=== PATIENT | female | born 1980 | race African-American/Black ===

== ENCOUNTER 2019-09-11 16:25 | Emergency (ER) | payer OTHER, SELFPAY ==
[2019-09-11 16:36] VITALS: BP 122/77; PULSE 107; RESP 18; TEMP 38.6; O2SAT 97
--- NOTE | 2019-09-11 17:01 | ED.GENADULT ---
HPI - General Adult General Chief complaint: Upper Respiratory Infection Stated complaint: Diarrhea/sore throat/bodyaches/dizziness Time Seen by Provider: 09/11/19 17:01 Source: patient Mode of arrival: ambulatory Limitations: no limitations History of Present Illness HPI narrative: 38-year-old female patient presents to the [facility] with complaints of cold symptoms and sore throat. Patient states that her sore throat started about 3 days ago but started having fevers yesterday. Patient states she has been very achy, chills, fevers, cough, runny nose been feeling very tired and weak. Patient denies getting a flu shot. 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 Patient states she has been taking gxmo-piw-otgvabi TheraFlu and ibuprofen for symptoms. Denies any abdominal pain, nausea, vomiting or diarrhea. Patient states she does have some chest pain and shortness of breath at times when she coughs. Patient denies or breast-feeding at this time. Related Data Allergies Allergy/AdvReac Type Severity Reaction Status Date / Time No Known Allergies Allergy Unverified 09/11/19 16:57 Review of Systems Review of Systems: Narrative: CONSTITUTIONAL: Positive fever, chills, body aches and sweats. Positive lethargy EYES: Denies visual changes, redness, or discharge. ENT: Positive rhinorrhea, congestion, sore throat, denies otalgia. CARDIOVASCULAR: Positive chest pain with cough, denies palpitations, or edema. RESPIRATORY: Positive cough with dyspnea at times. GASTROINTESTINAL: Denies abdominal pain, nausea, vomiting, or diarrhea. GENITOURINARY: Denies dysuria or hematuria. SKIN: Denies rash or itching. MUSCULOSKELETAL: Denies back pain, joint pain, or myalgia. NEUROLOGIC: Positive headache, denies numbness, or weakness. PSYCHIATRIC: Denies anxiety or depression. [facility] Past Medical History Medical History (Updated 09/11/19 @ 17:56 by NORMA Guthrie) Cholecystitis, acute Kidney stones Social History Social History Gender identity (if verbalized by the patient): Female Comments At the time of my signature I agree with nursing past medical history, surgical, social, and family history. There is no relevant family history pertinent to the presenting complaint. Exam Narrative: Exam Narrative: GENERAL: ill-appearing, well-nourished, and in no acute distress. HEAD: Normocephalic, atraumatic. EYES: PERRLA and EOMI. ENT: Nares with erythema and edema noted bilaterally, no rhinorrhea or epistaxis. Mucous membranes moist. Posterior pharynx with no erythema, tonsillar margin, exudates or lesions present. Bilateral TMs are clear with no erythema or foreign bodies in the canal. NECK: Supple. No lymphadenopathy CHEST: Clear to auscultation. No respiratory distress. Patient able talk clear complete sentences. No tripoding noted. HEART: Regular rate and rhythm. No murmur heard. Normal peripheral pulses. ABDOMEN: Soft, nontender, nondistended, normal active bowel sounds. EXTREMITIES: Normal range of motion. No edema. SKIN: Warm, dry, no rash. NEURO: No focal deficits. Alert and oriented x3. Course Reevaluation(s) Reevaluation #1: Discussed with patient that her influenza and her strep are both negative today. But based on her symptoms I am still not convinced that she could possibly still have influenza and the fact that she works in a senior care I am to take her off work for the next 3 days and see how her symptoms do. Discussed with patient that she should be taking hwnkp-sop-flivr Tylenol and ibuprofen for body aches, chills and fevers. I will go ahead and send her home with an cough syrup to help with the coughing symptoms. Discussed with patient that if she has worsening symptoms such as fevers that do not come down with Tylenol ibuprofen, worsening chest pain, shortness of breath that she would need to go the ER for furth
== END 2019-09-11 18:00 | disposition home or self-care (01) ==
PROVIDERS: Emergency Provider Nurse Practitioner Family
DX: J06.9 Acute upper respiratory infection, unspecified (principal); R05 Cough
CPT/HCPCS: 87081; 87804; 87880; 99203; G0463

== ENCOUNTER 2020-05-17 18:12 | Emergency (ER) | payer OTHER, SELFPAY ==
[2020-05-17 18:25] VITALS: BP 114/73; PULSE 93; RESP 16; TEMP 38.4; O2SAT 99
--- NOTE | 2020-05-17 18:32 | ED.GENADULT ---
HPI - General Adult General Chief complaint: Upper Respiratory Infection Stated complaint: Dizzy,Fatigue,Body aches Time Seen by Provider: 05/17/20 18:33 Source: patient and RN notes reviewed Mode of arrival: ambulatory Limitations: no limitations History of Present Illness HPI narrative: 39-year-old -[place] female presents with complaints of sore throat for 1 day. Werner says symptoms increased over the past 24 hours with upper respiratory infection symptoms, sinus congestion, body aches, chills, fatigue, cough, and intermittent dizziness. Sinus medication and NyQuil without relief. Dry coughing without chest congestion. Rhinorrhea and nasal congestion. No exacerbating factors. No nausea, vomiting, and abdominal pain. Tolerating po intake well. Denies chest pain, dyspnea, coughing up blood, difficulty swallowing, jaw pain, dental pain, facial pain, foreign body sensation, and rash. Denies loss of consciousness, syncopal episodes, falls, or seizure activity. LMP May 07, 2020. Remains active. Werner says she worked on 04/15/20 for 8 hours with a coworker who tested positive today. Her last test on 05/13/20 was NEGATIVE awaiting her results of today test. The patient reports she does have a new and worsening cough. The patient reports she do not have any loss of taste or diarrhea. Denies recent traveling. Limited outdoor exposure except for essential household needs, work, and return home. At this time, patient is suspected of having COVID-19. Some parts of this dictation were generated by voice recognition software and may contain typographical and/or grammatical inaccuracies. Related Data Allergies Allergy/AdvReac Type Severity Reaction Status Date / Time No Known Allergies Allergy Unverified 09/11/19 16:57 Review of Systems Review of Systems: Narrative: CONSTITUTIONAL: Complains of chills, fatigue. Denies fever, sweats. EYES: Denies visual changes, redness, discharge. ENT: Complains of rhinorrhea, congestion, facial pressure, sore throat. Denies otalgia. CARDIOVASCULAR: Denies chest pain, palpitations, edema. RESPIRATORY: Denies dyspnea, wheezing. Complains of dry cough. GASTROINTESTINAL: Denies abdominal pain, nausea, vomiting, diarrhea. GENITOURINARY: Denies dysuria, hematuria, abnormal discharge SKIN: Denies rash or itching. MUSCULOSKELETAL: Denies acute back pain, joint pain, or myalgia. NEUROLOGIC: Denies numbness or focal weakness. Complains of intermittent dizziness. PSYCHIATRIC: Denies anxiety or depression. All systems reviewed & are unremarkable except as noted in HPI and below. [facility] Past Medical History Medical History (Updated 05/18/20 @ 00:00 by Background Daemon) Cholecystitis, acute History of stent insertion of renal artery and removal for kidney stones Kidney stones Surgical History Surgical History (Updated 05/17/20 @ 19:39 by NORMA Holden) History of lithotripsy Family History Family History (Updated 05/17/20 @ 19:40 by NORMA Holden) Father Hypertension Mother Alive and well Social History Social History (Updated 05/17/20 @ 19:41 by NORMA Holden) Smoking status: Never smoker Tobacco type: cigarettes Second hand tobacco smoke exposure: Yes Alcohol intake: never Substance use: never Living arrangements: with family Occupation/Education: occupation Additional occupation/education comments: [employer] Gender identity (if verbalized by the patient): Female Sexual Orientation (if Verbalized by the Patient): Straight or Heterosexual Comments At time of signature, agree with nurse past medical, surgical, social, and family history. There is no relevant family history pertinent to the presenting complaint. Exam Narrative: Exam Narrative: GENERAL: This is a well-nourished, well-developed patient, in no apparent distress. Speaks in full sentences and ambulates with steady gait without dyspnea. HEAD:
[2020-05-17 19:09] VITALS: TEMP 38.3
[2020-05-17] MEDS: IBUPROFEN 400 MG TABLET 800 MG PO (19:09)
--- NOTE | 2020-05-17 19:10 | PC.NURSE ---
unable to scan medications. attempted x3. 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
[2020-05-17 19:19] VITALS: BP 101/77; BP 107/72; BP 99/62; PULSE 106; PULSE 89; PULSE 95
[2020-05-17 19:38] VITALS: TEMP 37.7
== END 2020-05-17 19:38 | disposition home or self-care (01) ==
PROVIDERS: Emergency Provider Nurse Practitioner Family
DX: B34.9 Viral infection, unspecified (principal)
CPT/HCPCS: 87081; 87804; 87880; 99213; A9270; G0463

== ENCOUNTER 2021-04-05 01:24 | Day surgery (SDC) | payer OTHER, SELFPAY ==
[2021-03-29 08:23] VITALS: BMI 36.3
[2021-04-05] VITALS (8 sets, daily range): BP systolic 98–124; BP diastolic 46–77; PULSE 52–96; RESP 14–20; TEMP 36.3–36.8; O2SAT 95–100
--- NOTE | 2021-04-05 10:20 | WPDHPUPDATE1 ---
History and Physical Update Update Date/Time: 04/05/21 10:20 History and Physical has been reviewed, including an updated exam of the patient. There are NO changes in the patient's condition. Risks, benefits, and alternatives have been discussed and questions answered. Patient agrees to proceed with procedure.
[2021-04-05] MEDS: LACTATED RINGERS 1,000 ML 30 ML IV CONT (10:25)
[2021-04-05] MEDS: KETOROLAC 15 MG/ML VIAL (*BKC) IV PUSH (10:33)
[2021-04-05] MEDS: ACETAMINOPHEN 500 MG TABLET 1000 MG PO (10:33)
--- NOTE | 2021-04-05 10:38 | P.PNAN_ITS ---
Anes - Initial Pre Proc Eval Procedure: Operation Date: 04/05/21 12:30 Proposed Procedures p Hysteroscopy with Ciara Endometrial Ablation, Laparoscopic Bilateral Salpingectomy - Frances Howard MD Date/Time: 04/05/21 10:38 Surgeon: Frances Howard MD Pre Op Diagnosis: menorrhaghia, sterilization Patient Data Age: 40 Gender: F Height: 1.6 m Weight: 91 kg Allergies Allergy/AdvReac Type Severity Reaction Status Date / Time No Known Allergies Allergy Verified 04/05/21 10:20 Home Medications Medication Instructions Recorded Confirmed Type cholecalciferol (vitamin D3) 125 mcg PO DAILY 03/29/21 04/05/21 History [Vitamin D3] bmjovogzljrl-Oj-qlcu-minerals 1 tablet PO DAILY 03/29/21 04/05/21 History [Women's One Daily] valacyclovir [Valtrex] 1,000 mg PO PRN PRN 03/29/21 04/05/21 History Patient hx anesthesia problems: none Family hx anesthesia problems: none Results Review: All pre-operative results and documents have been reviewed as part of the pre-operative evaluation. [facility] Past Medical History Medical History Cholecystitis, acute History of stent insertion of renal artery and removal for kidney stones Kidney stones Surgical History Surgical History History of lithotripsy Family History Family History Father Hypertension Mother Alive and well Social History Social History Smoking status: Never smoker Tobacco type: cigarettes Second hand tobacco smoke exposure: Yes Alcohol intake: never Substance use: never Substance use type: does not use Living arrangements: with family Additional occupation/education comments: [employer] / [employer] Gender identity (if verbalized by the patient): Female Sexual Orientation (if Verbalized by the Patient): Straight or Heterosexual Spiritual care concerns: No Anes - Eval Final PreProcedure Day of Procedure 04/05/21 10:38 Patient weight: obese Heart: regular rate and rhythm Lungs: clear to auscultation Airway: Mallampati scale class II Neurological: alert and oriented Last oral intake: >/= 8 hours ASA classification: II Emergent: no Anesthetic plan: proceed Anesthesia type and monitoring: general ETT and standard monitoring Results Review: All pre-operative results and documents have been reviewed as part of the pre-operative evaluation. Informed Consent: The patient's anesthetic plan and its attendant risks and benefits were discussed with the patient/family/POA. Questions were solicited and answers provided to the satisfaction of the patient/family/POA.
--- NOTE | 2021-04-05 11:59 | P.OP_ITS ---
Procedure Note - Detailed Date of Procedure 04/05/21 Pre-op Diagnosis menorrhaghia, sterilization Post-op Diagnosis same Procedure Performed Laparoscopic bilateral salpingectomy with endometrial ablation and hysteroscopy. Surgeon Frances Howard MD Anesthesia general Indications Menorrhagia, female sterilization Findings Normal vulva, vagina and cervix Description of Procedure Patient was taken the operating room. She has prepped draped in the dorsal lithotomy position after induction of general anesthesia. A 5 mm abdominal incision was made in left upper quadrant of the abdomen with scalpel. A 5 mm trocars inserted the intra-abdominal cavity under direct visualization of the scope. Pneumoperitoneum was achieved. A 5 mm periumbilical incision was made using a scalpel on the abdominal scan. A 5 mm trocar was inserted the intra- abdominal cavity under visualization of the scope. A 5 mm incision made left lower quadrant of the abdomen. A 5 mm trocar was inserted the intra-abdominal cavity and direct visualization of the scope. The bilateral fallopian tubes were removed. The paratubal tissue in the area of the uterus was grasped with the LigaSure cautery and transected after being cauterized. The paratubal tissue from the ovary to the uterine cornu was cauterized and transected with LigaSure cautery. This was all done in a bilateral fashion. The tube was transected at the area of the uterine cornua and the tubes was removed through the 5 mm trocar site. The pneumoperitoneum was reduced. The trocars were removed. The skin was closed with subcuticular 4 Monocryl and covered with Dermabond. Our attention was then turned to the endometrial ablation portion of the procedure. A speculum was placed in the vagina. The cervix was grasped with a tenaculum. The cervix was dilated to approximately 8 mm with Wan dilators. The hysteroscope was inserted. And the below findings were noted. All of the intrauterine surfaces were curettaged with a medium-size curette and the specim ens were collected. Measurements of the cervix were taken using the uterine sound and the hysteroscope. The intrauterine cavity measurements were entered into the handpiece. The device was inserted into the intrauterine cavity and the array was expanded. The balloon cuff was inflated. When an adequate seal was formed the safety and energy cycles were initiated and completed. The array was collapsed, the balloon was deflated. The insert was withdrawn. The hysteroscope was reinserted and a well desiccated intrauterine cavity was observed. The patient was taken recovery room stable condition. Sponge lap and needle counts were correct x2. She tolerated the procedure well. Estimated Blood Loss 20 Pathology yes Complications No immediate complications Condition stable Disposition PACU
== END 2021-04-05 13:38 | disposition home or self-care (01) ==
PROVIDERS: Visit Provider Obstetrics & Gynecology
PROC: 0UDB8ZZ Extraction of Endometrium, Via Natural or Artificial Opening Endoscopic (ICD-10-PCS; CPT 58558; principal; 2021-04-05 12:30)
DX: N92.0 Excessive and frequent menstruation with regular cycle (principal); Z30.2 Encounter for sterilization; E66.9 Obesity, unspecified; Z68.35 Body mass index [BMI] 35.0-35.9, adult
CPT/HCPCS: 58661; 58563; 88302; 88305; A9270; J1100; J1170; J1885; J2250; J2405; J2704; J2710; J7030; J7120

== ENCOUNTER 2022-04-03 08:37 | Outpatient (CLI) | payer OTHER, SELFPAY ==
--- NOTE | ~2022-04-03 | MM_ITS ---
EXAMINATION: MM screening shanika BI w bud HISTORY: Screening mammogram TECHNIQUE: Craniocaudal and mediolateral oblique 3-D tomosynthesis images were obtained and synthetic 2-D images were generated. CAD analysis was submitted and interpreted. COMPARISON: No prior mammogram is available for comparison at this institution. BREAST PARENCHYMAL COMPOSITION: There are scattered areas of fibroglandular density. FINDINGS: There is no evidence of suspicious mass, calcification, or architectural distortion to sugg est malignancy in either breast. There has been no suspicious interval change. IMPRESSION: 1. No mammographic evidence of malignancy. 2. Recommend routine screening mammography in one year. BI-RADS Category 1: Negative Reviewed, dictated and finalized at location A.
== END 2022-04-03 08:38 | disposition home or self-care (01) ==
PROVIDERS: Visit Provider Obstetrics & Gynecology
DX: Z12.31 Encounter for screening mammogram for malignant neoplasm of breast (principal)
CPT/HCPCS: 77063; 77067

== ENCOUNTER 2022-04-20 09:36 | Emergency (ER) | payer OTHER, SELFPAY ==
[2022-04-20 10:05] VITALS: BP 145/86; PULSE 85; RESP 16; TEMP 37.1; O2SAT 99
--- NOTE | 2022-04-20 10:21 | ED.URI ---
HPI - URI/Sore Throat General Chief Complaint: Upper Respiratory Infection Stated Complaint: sore throat, chest and upper back pain Time Seen by Provider: 04/20/22 10:21 Source: patient, RN notes reviewed and old records reviewed Mode of arrival: ambulatory Limitations: no limitations History of Present Illness HPI Narrative: 41-year-old female presents to the [facility] with complaints of sore throat since Saturday, 2 days. Reports when she was leaving work on Saturday they tested her for COVID right when her symptoms started. Cough and muscle pain started yesterday. No treatment prior to arrival Pain is worse with movement. Requesting a work note to go back on Saturday Related Data Home Medications Medication Instructions Recorded Confirmed cholecalciferol (vitamin D3) 125 125 mcg PO DAILY 03/29/21 04/20/22 mcg (5,000 unit) tablet (Vitamin D3) mfkzdwhzpxon-Ss-tlzw-minerals 27 1 tablet PO DAILY 03/29/21 04/20/22 mg-0.4 mg tablet valacyclovir 1 gram tablet 1,000 mg PO PRN PRN Outbreak 03/29/21 04/20/22 (Valtrex) Allergies Allergy/AdvReac Type Severity Reaction Status Date / Time No Known Allergies Allergy Verified 04/09/22 10:05 Review of Systems Review of Systems: All systems reviewed & are unremarkable except as noted in HPI and below Constitutional: Constitutional: Reports no additional constitutional complaints, Denies chills and Denies fever(s) Eyes: Eyes: Reports no additional eye complaints ENT: Reports as per HPI and Reports sore throat Cardiovascular: Cardiovascular: Reports no additional cardiovascular complaints Respiratory: Respiratory: Reports as per HPI and Reports cough Gastrointestinal: Gastrointestinal: Reports no additional gastrointestinal complaints Musculoskeletal: Musculoskeletal: Reports no additional musculoskeletal complaints Integumentary/Breasts: Skin/Breast: Reports system reviewed and no additional complaints, except as docu Neurologic: Reports system reviewed and no additional complaints, except as documented Psychiatric: Psychiatric: Reports no additional psychiatric complaints Allergic/Immunologic: Allergic/Immunologic: Reports no additional allergic/immunologic complaints PMFSH Past Medical History Medical History Cholecystitis, acute Chronic diarrhea History of stent insertion of renal artery and removal for kidney stones Kidney stones Obesity Surgical History Surgical History History of lithotripsy Hx of cholecystectomy Family History Family History Father Hypertension Mother Alive and well Social History Social History Smoking status: Never smoker Tobacco type: cigarettes Second hand tobacco smoke exposure: Yes Alcohol intake: never Substance use: never Substance use type: does not use Additional occupation/education comments: [employer] Gender identity (if verbalized by the patient): Female Sexual Orientation (if Verbalized by the Patient): Straight or Heterosexual Spiritual care concerns: No Comments At the time of my signature, I reviewed and agree with the nursing past medical, surgical, social, and family history. There is no relevant family history pertinent to the patient complaint. Exam Const: General: healthy appearing, no acute distress, alert and well nourished Nutritional Appearance: well nourished Orientation/consciousness: patient oriented x3 Limitations: no limitations HENMT: Head: normal to inspection Ears: external ears normal Face/Nose/Sinus: Normal external nose present and Normal nares present Face and sinus: normal facial exam Mouth: Yes Normal oral and palatal mucosa present, Yes lip normal and Yes moist mucous membranes Throat: posterior oropharynx norm
== END 2022-04-20 11:19 | disposition home or self-care (01) ==
PROVIDERS: Emergency Provider Nurse Practitioner
DX: J06.9 Acute upper respiratory infection, unspecified (principal); E66.9 Obesity, unspecified; Z68.35 Body mass index [BMI] 35.0-35.9, adult; Z20.822 Contact with and (suspected) exposure to COVID-19
CPT/HCPCS: 87081; 87426; 87804; 87880; 99213; C9803; G0463

== ENCOUNTER 2025-05-07 10:53 | Emergency (ER) | payer OTHER, SELFPAY ==
[2025-05-07] VITALS (10 sets, daily range): BP systolic 110–131; BP diastolic 64–76; PULSE 65–79; RESP 12–16; TEMP 36.4; O2SAT 100
--- NOTE | ~2025-05-07 | US_ITS ---
EXAMINATION: US transvaginal DATE: 05/07/2025 18:04 INDICATION: Left lower quadrant abdominal pain. Abnormal CT findings. TECHNIQUE: Multiple transabdominal and endovaginal sonographic images of the pelvis were obtained. COMPARISON: None. FINDINGS: The uterus measures 8.4 x 4.8 x 5.1 cm. 9 mm anechoic nabothian cyst at the cervix. There is coarsened echotexture to the uterine myometrium with striated pattern of shadowing which can be seen with adenomyosis. There is a trace amount of fluid within the endometrial canal. The endometrial complex measures <3 mm. The right ovary measures 1.9 x 1.9 x 1.3 cm. 1.1 cm thick-walled centrally anechoic likely corpus luteum cyst in the right ovary. The left ovary measures 2.2 x 2.3 x 1.7 cm. After flow identified in both ovaries on color Doppler. There is no free fluid in the pelvis. IMPRESSION: 1. Myometrium demonstrates heterogeneous coarsened echotexture with striated pattern of shadowing which could be seen in the setting of adenomyosis. 2. Poorly defined but thin endometrial complex with trace amount of fluid. The irregular contour seen on prior CT could be related to reported prior endometrial ablation. Reviewed, dictated and finalized at location A. IMPRESSION: 1. Myometrium demonstrates heterogeneous coarsened echotexture with striated pa ttern of shadowing which could be seen in the setting of adenomyosis. 2. Poorly defined but thin endometrial complex with trace amount of fluid. The irregular contour seen on prior CT could be related to reported prior endometri al ablation.
--- NOTE | ~2025-05-07 | CT_ITS ---
EXAMINATION: CT abdomen pelvis w con DATE: 05/07/2025 16:12 INDICATION: Left lower quadrant tenderness TECHNIQUE: Computed tomography (CT) of the abdomen and pelvis was performed with 100 mL Omnipaque-350 intravenous contrast. Automated exposure control and iterative reconstruction technique were employed. The dose-length product was 429.53 mGy-cm. COMPARISON: None FINDINGS: Minimal dependent atelectasis in the lower lobes. Heart size is normal. No pericardial or pleural effusion. 10.0 x 7.3 x 9.16 m heterogeneously enhancing right adrenal mass which exerts mass effect upon the right hepatic lobe and the upper pole of the right kidney. Liver is otherwise unremarkable. Cholecystectomy clips the gallbladder fossa. Spleen, pancreas, left adrenal gland and left kidney are normal. 2 mm stone in upper pole calyx of the right kidney. 4 mm low- attenuation cyst at the lower pole of the right kidney. Bowels including the appendix are normal. Bladder and bilateral adnexa are unremarkable. 7 mm likely enhancing subserosal fibroid along the right-sided the uterine fundus. There is an irregular contour to the hypoenhancing regions of the endometrial complex in the lower uterine segment. No free intraperitoneal gas or fluid. No pathologically enlarged abdominal or pelvic lymphadenopathy. Small fat- containing umbilical hernia. Small sclerotic bone island at the right femoral head. Bones are otherwise unremarkable. IMPRESSION: 1. 10.0 cm heterogeneously enhancing right adrenal mass which raises concern for adrenal carcinoma. Would recommend further evaluation with pre and postcontrast adrenal protocol MRI or CT and hormonal workup including for metanephrines. If still indeterminate would proceed with CT-guided core needle biopsy. 2. 7 mm subserosal fibroid at the uterus but with more concerning irregular contour to the endometrial complex. Consider further evaluation with pelvic ultrasound and/or hysteroscopy. 3. Small fat-containing umbilical hernia. Reviewed, dictated and finalized at location A. IMPRESSION: 1. 10.0 cm heterogeneously enhancing right adrenal mass which raises concern fo r adrenal carcinoma. Would recommend further evaluation with pre and postcontra st adrenal protocol MRI or CT and hormonal workup including for metanephrines. If still indeterminate would proceed with CT-guided core needle biopsy. 2. 7 mm subserosal fibroid at the uterus but with more concerning irregular con tour to the endometrial complex. Consider further evaluation with pelvic ultras ound and/or hysteroscopy. 3. Small fat-containing umbilical hernia.
--- OUTSIDE RECORDS SUMMARY | 2025-05-07 11:17 | XMS_ITS | Encounter Summary ---
Author Organization [facility] Address [address] 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
--- OUTSIDE RECORDS SUMMARY | 2025-05-07 11:17 | XMS_ITS | Data Portability ---
Author Organization [facility] [place] [place] Address [address] [place] [address] Assessment Encounter Date Assessment Date Assessment LastModified by Organization Details LastModified Time 06/15/2024 06/15/2024 Annual gynecological exam performed. Patient will come back in a year unless there are new symptoms. [email or web address] Not available 06/15/2024 10:23:50 Plan of Treatment Reminders Order Date Submit Date Provider Last Modified By Organization Details Last Modified Time Details Appointments None recorded. Lab dhea-sulfat e, serum 2024 025 [facility] (Lab), [address], [place], [address], 5 14:05:19 hormone panel, serum or plasma 2024 025 [facility] (Lab), [address] [place], [address], 5 14:05:21 progesteron e, serum 2024 025 [facility] (Lab), [address] [place], [address], 5 14:05:20 prolactin, serum 2024 025 [facility] (Lab), [address], [place], [address], 5 14:05:20 shbg (sex hormone-bin ding globulin), serum 2024 025 [facility] (Lab), [address] [place], [address], 5 14:05:21 TSH, serum or plasma 2024 025 [facility] (Lab), [address] [place], [address], 5 14:05:22 testosteron e free/testos terone total, ratio, serum 2024 [facility] (Lab), [address] [place], [address], 5 14:05:22 hbcab (hepatitis B core Ab) igm, serum 2024 025 [facility] (Lab), [address] [place], [address], 5 11:10:06 HBsAg (hepatitis B surface Ag), serum 2024 025 [facility] (Lab), [address] [place], [address], 5 11:10:05 hepatitis C virus Ab, serum 2024 025 [facility] (Lab), [address] [place], [address], 5 11:10:06 HIV 1+2 AB + HIV 1 p24 Ag, qualitative immunoassay , serum 2024 025 [facility] (Lab), [address] [place], [address], 5 11:10:06 RPR (rapid plasma reagin), serum 2024 025 [facility] (Lab), [address] [facility], [place], [address], 5 11:10:07 culture, urine 2024 025 [facility] (Lab), [address] [facility] [address] [facility], [place], [address], 5 02:41:42 urinalysis, dipstick [email or web address], [address], [place], [address], 5 14:48:11 test, urine [facility]24 [facility], [address], [place], [address], 5 14:50:24 CT + NG + TV, RNA, unspecified specimen 2024 025 [facility] (Lab), [address] [facility], [place], [address], 5 10:17:32 HBsAg (hepatitis B surface Ag), serum 2023 024 [facility] (Lab), [address] [facility], [place], [address], 4 12:55:39 CT + NG + TV, RNA, unspecified specimen 2023 024 [facility] (Lab), [address], [place], [address], 4 14:11:15 Referral None recorded. Procedures None recorded. Surgeries None recorded. Imaging US, pelvis 2024 025 [email or web address] [facility], [address], [place], [address], 5 21:14:53 US, transvagina l 2024 025 [email or web address] [facility], [address], [address], [place], [address], 5 21:14:53 US, breast, unilateral, w/ axilla 2024 025 [facility], [address], [address], [place], [address], 5 04:03:25 MAMMO, diagnostic, digital, unilateral 2024 025 [email or web address] Not available 5 15:36:47 MAMMO, diagnostic, digital, bilateral - left breast lumps felt at 12oclock [address] (Mammography) , [address], [place], [address], 4 15:47:41 US, breast, unilateral [address] (Mammography) , [address], [place], [address], 4 15:47:49 Medication Orders None recorded. Patient TargetsNo targets recorded. Patient InstructionsNo instructions recorded. Reason for Referral None Reported. Results Created Date Observation Date Name Description Value Unit Range Abnormal Flag Note LastModifiedBy Organization Detail LastModifiedTime 06/15/20 24 06/15/2024 HBSAG /HCV/ HIV/R MA hepatitis B surface antigen Non-re active non-re active This assay was perfo rmed using [employer] ratio n reage nts and test kits. Value s obtai abelardo with other assay metho ds or kits canno t be used inter oliveros eably . Not Available [facility] (Lab) [address], [place], [address], 06/16/2024 12:55:39 06/15/20 24 06/15/2024 HBSAG /HCV/ HIV/R MA HIV antigen/anti body Nonrea ctive nonrea ctive HIV-1 antig en and HIV-1 /HIV- 2 antib odies were not detec alex. No labor atory evide nce of HIV infec tion. Not Available [facility] (Lab) [address] [facility], [place], [address], 06/16/2024 12:55:39 06/15/20 24 06/15/2024 HBSAG /HCV/ HIV/R MA hepatitis C antibody Non-re active non-re active Antib odies to HCV Not Detec alex, does not exclu de the possi bilit y of expos ure to HCV. Not Available [facility] (Lab) [address] [facility], [place], [address], 06/16/2024 12:55:39 06/15/20 24 06/15/2024 HBSAG /HCV/ HIV/R MA RPR screen Nonrea ctive nonrea ctive Not Available [facility] (Lab) [address] [facility], [place], [address], 06/16/2024 12:55:39 06/15/20 24 06/15/2024 CT/GC AND TRICH OMONA S VAGIN CARROL (RRNA ), SWAB chlamydia trachomatis, PCR Negati ve negati ve Not Available [facility] (Lab) [address] [facility] [facility], [place], [address], 06/16/2024 14:11:15 06/15/20 24 06/15/2024 CT/GC AND TRICH OMONA S VAGIN CARROL (RRNA ), SWAB neisseria gonorrhoeae, PCR Negati ve negati ve Not Available [facility] (Lab) [address] [place], [address], 06/16/2024 14:11:15 06/15/20 24 06/15/2024 CT/GC AND TRICH OMONA S VAGIN CARROL (RRNA ), SWAB trichomonas vaginalis ribosomal RNA (rrna) Negati ve negati ve Not Available [facility] (Lab) [address] [facility], [place], [address], 06/16/2024 14:11:15 11/19/19 25 11/18/2024 CT/GC AND TRICH OMONA S VAGIN CARROL (RRNA ), URINE CT/GC and trichomonas vaginalis (rrna), urine CANCEL LED Wrong Test Order ed Not Available [facility] (Lab) [address] [facility], [place], [address], 11/19/2024 10:17:32 11/19/19 25 11/18/2024 HEPAT ITIS B SURFA CE ANTIG EN hepatitis B surface antigen Non-re active non-re active This assay was perfo rmed using [employer] ratio n reage nts and test kits. Value s obtai abelardo with other assay metho ds or kits canno t be used inter oliveros eably . Not Available [facility] (Lab) [address] [facility], [place], [address], 11/19/2024 11:10:05 11/19/19 25 11/18/2024 HIV 1/2 ANTIG EN/AN TIBOD Y, REFLE X CONFI RMATI ON HIV antigen/anti body Nonrea ctive nonrea ctive HIV-1 antig en and HIV-1 /HIV- 2 antib odies were not detec alex. No labor atory evide nce of HIV infec tion. Not Available [facility] (Lab) [address] [facility] [address], [place], [address], 11/19/2024 11:10:05 11/19/19 25 11/18/2024 HEPAT ITIS C ANTIB EDUARD SCREE N, REFLE X TO CONFI RMATI ON hepatitis C antibody Non-re active non-re active Antib odies to HCV Not Detec alex, does not exclu de the possi bilit y of expos ure to HCV. Not Available [facility] (Lab) [address] [facility], [place], [address], 11/19/2024 11:10:06 11/19/19 25 11/18/2024 HEPAT ITIS B CORE, IGM hepatitis B core IgM antibody Non-re active non-re active Antib odies to Hepat itis B Core IgM not detec alex. Does not exclu de the possi bilit y of expos ure to or infec tion with HBV. Corre late with other Hepat itis B serol ogies . Not Available [facility] (Lab) [address] [facility], [place], [address], 11/19/2024 11:10:06 11/19/19 25 11/18/2024 RPR SCREE N, REFLE X TITER /CONF IRMAT ION RPR qualitative Nonrea ctive nonrea ctive Not Available [facility] (Lab) [address] [facility], [place], [address], 11/19/2024 11:10:07 11/19/19 25 11/18/2024 CT/GC AND TRICH OMONA S VAGIN CARROL (RRNA ), SWAB chlamydia trachomatis, PCR Negati ve negati ve Not Available [facility] (Lab) [address] [facility], [place], [address], 11/20/2024 02:41:41 11/19/19 25 11/18/2024 CT/GC AND TRICH OMONA S VAGIN CARROL (RRNA ), SWAB neisseria gonorrhoeae, PCR Negati ve negati ve Not Available [facility] (Lab) [address] [facility], [place], [address], 11/20/2024 02:41:41 11/19/1911/18/2024 CT/GC AND TRICH OMONA S VAGIN CARROL (RRNA ), SWAB trichomonas vaginalis ribosomal RNA (rrna) Negati ve negati ve Not Available [facility] (Lab) [address] [place], [address], 11/20/2024 02:41:41 11/19/1911/18/2024 CULTU RE: URINE result report SEE RESULT S BELOW Test: Cultu re: Urine Speci men Sourc e: Urine - Clean Catch Speci men Type: Urine Speci men Date: 2024 1427 Resul t Date: 2024 0137 Resul t Statu s: Final resul t Abnor mal: No Resul ting Lab: [facility] [address] [facility] [address] Tel: CULTU RE ----- ----- ----- --- No growt h in 1 day (dete ction level of 10,00 0 colon ies / ml.) Not Available [facility] (Lab) [address], [place], [address], 11/20/2024 02:41:42 11/19/19 25 11/18/2024 pregn bladimir test, urine HCG negati ve Not Available [facility] [address], [place], [address], 11/18/2024 14:50:15 11/19/19 25 11/18/2024 urina lysis , dipst ick Leukocytes ++ Not Available [facility] naheed [address], [place], [address], 11/18/2024 14:47:34 11/19/19 25 11/18/2024 urina lysis , dipst ick Nitrite + Not Available [facility] [address], [place], [address], 11/18/2024 14:47:34 11/19/19 25 11/18/2024 urina lysis , dipst ick Urobilinogen Normal Not Available [facility] [address], [place], [address], 11/18/2024 14:47:34 11/19/19 25 11/18/2024 urina lysis , dipst ick Protein Trace Not Available [facility] [address], [place], [address], 11/18/2024 14:47:34 11/19/19 25 11/18/2024 urina lysis , dipst ick pH 5 Not Available [facility] [address], [place], [address], 11/18/2024 14:47:34 11/19/19 25 11/18/2024 urina lysis , dipst ick Blood + Not Available [facility] [address], [place], [address], 11/18/2024 14:47:34 11/19/19 25 11/18/2024 urina lysis , dipst ick Specific Blanco 1.015 [facility] Available [facility] [address], [place], [address], 11/18/2024 14:47:34 11/19/19 25 11/18/2024 urina lysis , dipst ick Ketone - Not Available [facility] [address], [place], [address], 11/18/2024 14:47:34 11/19/19 25 11/18/2024 urina lysis , dipst ick Bilirubin - Not Available [facility] [address], [place], [address], 11/18/2024 14:47:34 11/19/19 25 11/18/2024 urina lysis , dipst ick Glucose Normal Not Available [facility] [address], [place], [address], 11/18/2024 14:47:34 11/19/19 25 11/18/2024 urina lysis , dipst ick Appearance Cloudy Not Available [facility] far[facility] [address], [place], [address], 11/18/2024 14:47:34 11/19/19 25 11/18/2024 urina lysis , dipst ick Color yellow Not Available [facility] [address], [place], [address], 11/18/2024 14:47:34 11/25/19 25 11/24/2024 WOMEN 'S HEALT H SWAB, ARLEN krystina species, tma Negati ve negati ve Not Available [facility] (Lab) [address] [place], [address], 11/26/2024 08:41:15 11/25/19 25 11/24/2024 WOMEN 'S HEALT H SWAB, ARLEN krystina glabrata, tma Negati ve negati ve Not Available [facility] (Lab) [address] [place], [address], 11/26/2024 08:41:15 11/25/19 25 11/24/2024 WOMEN 'S HEALT H SWAB, ARLEN trichomonas vaginalis, tma Negati ve negati ve This assay tests for and diffe renti atejoe lucero en [facility] da glabr estephanie, the [facility] [facility] speci es group (C. albic ans, C. tropi calis , C. parap kang is, C. dubli niens is), and Trich omona s vagin carrol by Trans cript ion-M ediat ed Ampli ficat ion (TMA) . Not Available [facility] (Lab) [address] [place], [address], 11/26/2024 08:41:15 11/25/19 25 11/24/2024 WOMEN 'S HEALT H SWAB, ARLEN bacterial vaginosis (bv), tma Positi ve negati ve abnormal This test detec ts ribos omal RNA from bacte german assoc iated with bacte rial vagin osis (BV), inclu ding Lacto bacil rohan (L. gasse ri, L. crisp atus and L. jense elia), Gardn erell a vagin carrol, and Atopo bium vagin ae by Trans cript ion-M ediat ed Ampli ficat ion (TMA) . A singl e quali tativ e resul t is repor alex based on instr ument softw are to deter mine BV posit ye or negat ye statu s. Not Available [facility] (Lab) [address] [facility], [place], [address], 11/26/2024 08:41:15 11/26/1911/25/2024 CULTU RE: URINE result report SEE RESULT S BELOW Test: Cultu re: Urine Speci men Sourc e: Urine - Clean Catch Speci men Type: Urine Speci men Date: 2024 1639 Resul t Date: 2024 2211 Resul t Statu s: Final resul t Abnor mal: No Resul ting Lab: [facility] [address] [facility] [address] Tel: CULTU RE ----- ----- ----- --- No growt h in 1 day (dete ction level of 10,00 0 colon ies / ml.) Not Available [facility] (Lab) [address], [place], [address], 11/26/2024 23:14:28 12/31/19 25 12/30/2024 DHEA SULFA TE DHEA-sulfate 304 ug/dL Femal e Range s Age(y ) Range (ug/d L) 10-15 34-28 0 15-20 65-36 8 20-25 148-4 07 25-35 99-34 0 35-45 61-33 7 45-55 35-25 6 55-65 19-20 5 65-75 9-246 > 75 12-15 4 Not Available [facility] (Lab) [address] [place], [address], 01/04/2025 14:05:19 12/31/19 25 12/30/2024 PROLA CTIN prolactin, total 11.00 NG/mL 4.79-2 3.30 This assay was perfo rmed using [employer] ratio n reage nts and test kits. Value s obtai abelardo with other assay metho ds or kits canno t be used inter oliveros eably . Not Available [facility] (Lab) [address] [place], [address], 01/04/2025 14:05:20 12/31/19 25 12/30/2024 PROGE STERO NE progesterone 8.91 NG/mL This assay was perfo rmed using [employer] ratio n reage nts and test kits. Value s obtai abelardo with other assay metho ds or kits canno t be used [facility] . Femal e Proge stero ne Range s: Folli cular phase 0.06- 0.89 ng/mL Ovula tion phase 0.12- 12.00 ng/mL Lutea l phase 1.83- 23.90 ng/mL Postm enopa usal <0.05 -0.13 ng/mL Healt hy Pregn ant Women 1st Trime ster 11.0- 44.30 2nd Trime ster 25.40 -83.3 0 3rd Trime ster 58.70 -214. 00 Not Available [facility] (Lab) [address], [place], [address], 01/04/2025 14:05:20 12/31/19 25 12/30/2024 FSH, LH, ESTRA DIOL estradiol 59.0 pg/mL This assay was perfo rmed using [employer] ratio n reage nts and test kits. Value s obtai abelardo with other assay metho ds or kits canno t be used [facility] . Femal e Estra diol Range s: Folli cular phase 12.4- 233 pg/mL Ovula tion phase 41.0- 398 pg/mL Lutea l phase 22.3- 341 pg/mL Postm enopa usal <5-13 8 pg/mL Healt hy Pregn ant Women 1st Trime ster 154-3 243 pg/mL 2nd Trime ster 1561- 97459 pg/mL 3rd Trime ster 8525- >3000 0 pg/mL Not Available [facility] (Lab) [address] [place], [address], 01/04/2025 14:05:21 12/31/19 25 12/30/2024 FSH, LH, ESTRA DIOL FSH 2.4 mIU/m L This assay was perfo rmed using [employer] ratio n reage nts and test kits. Value s obtai abelardo with other assay metho ds or kits canno t be used inter [facility] . Femal es Folli cular : 3.5-1 2.5 mIU/m L Ovula tion: 4.7-2 1.5 mIU/m L Lutea l: 1.7-7 .7 mIU/m L Postm enopa use: 25.8- 134.8 mIU/m L Not Available [facility] (Lab) [address] [place], [address], 01/04/2025 14:05:21 12/31/19 25 12/30/2024 FSH, LH, ESTRA DIOL LH 2.4 mIU/m L This assay was perfo rmed using [employer] ratio n reage nts and test kits. Value s obtai abelardo with other assay metho ds or kits canno t be used inter [facility] . Femal es Mid-F ollic ular: 2.4-1 2.6 mIU/m L Mid-C ycle: 14.0- 95.6 mIU/m L Mid-L uteal : 1.0-1 1.4 mIU/m L Postm enopa use: 7.7-5 8.5 mIU/m L Not Available [facility] (Lab) [address] [place], [address], 01/04/2025 14:05:21 12/31/19 25 12/30/2024 HUMAN SEX HORMO NE PATRICK NG GLOBU SOPHIA sex hormone binding globulin 32.8 nmole s/L 18.2-1 35.5 Not Available [facility] (Lab) [address] [place], [address], 01/04/2025 14:05:21 12/31/19 25 12/30/2024 TSH, REFLE X FREE T4 TSH 1.20 uIU/m L 0.30-5 .33 Not Available [facility] (Lab) [address] [place], [address], 01/04/2025 14:05:22 12/31/19 25 12/30/2024 TESTO STERO NE, FREE( DIALY SIS) AND TOTAL (LC/M S/MS) testosterone , total 14 NG/dL 2-45 For addit ional infor niesha kinsey e refer to http: //[facility] botello.que stdia gnost ics.c om/fa q/ Total Testo stero neLCM SMSFA Q165 (This link is being provi ded for infor matio nal/ educa katherine l purpo ses only. ) This test was devel oped and its loulou tical perfo rmanc e monserrat cteri stics have been deter mined by [employer] [place], [place]. It has not been clear ed or appro miguel by the U.S. Food and Drug Admin istra tion. This assay has been valid ated pursu ant to the CLIA regul ation s and is used for clini florencio purpo ses. Not Available [facility] (Lab) [address], [place], [address], 01/04/2025 14:05:22 12/31/19 25 12/30/2024 TESTO STERO NE, FREE( DIALY SIS) AND TOTAL (LC/M S/MS) testosterone , free 1.3 pg/mL 0.1-6. 4 This test was devel oped and its loulou tical perfo rmanc e monserrat cteri stics have been deter mined by [employer] [place], [place]. It has not been clear ed or appro miguel by the U.S. Food and Drug Admin istra tion. This assay has been valid ated pursu ant to the CLIA regul ation s and is used for clini florencio purpo ses. Perfo rming Organ izati on Infor matdangelo n: Site ID: AMD Name: [employer] tutdesmond Addre ss: [id number] [place], [place] Direc tor: Danyell Harry MD PhD Not Available [facility] (Lab) [address], [place], [address], 01/04/2025 14:05:22 09/16/19 24 09/16/2023 MAMMO , diagn ostic , digit al, bilat eral No observ ation record ed. [email or web address] [facility] [address] [place], [address], 09/24/2023 09:30:18 03/27/20 24 03/20/2024 MAMMO , diagn ostic , digit al, bilat eral No observ ation record ed. [facility] [address] [place], [address], 04/09/2024 16:36:24 03/27/20 24 03/20/2024 US, breas t, bilat eral No observ ation record ed. [facility] (Radiology) [address] [place], [address], 03/31/2024 10:48:19 09/18/19 25 09/17/2024 MAMMO , diagn ostic , unila teral No observ ation record ed. [email or web address] [facility] [address] [place], [address], 09/21/2024 09:10:38 09/18/19 25 09/17/2024 US, breas t, unila teral No observ ation record ed. [email or web address] [facility] (Radiology) [address] [place], [address], 09/21/2024 09:10:15 11/24/19 25 11/23/2024 US, pelvi s No observ ation record ed. [email or web address] [place] [address], [place], [address], 11/23/2024 18:17:22 11/24/19 25 11/23/2024 US, trans vagin al No observ ation record ed. [email or web address] [facility] [address], [place], [address], 11/23/2024 18:17:31 11/24/19 25 11/23/2024 US, pelvi s No observ ation record ed. [email or web address] [facility] [address], [place], [address], 11/25/2024 14:24:43 12/18/19 25 12/17/2024 MAMMO , diagn ostic , digit al, unila teral No observ ation record ed. [email or web address] Not Available 2024 13:28:29 Result Notes None recorded. Problems Name Problem SNOMED Code Status Onset Date Resolution Date Notes Provider Name and Address Organization Details Recorded Time SNOMED CT Concept Completed 201801/31/2021 Encntr for pivot maker exam (general) (routine) w/o abn findings;R ecorded Elsewhere: No Locatio n: [facility] rce: EHR Chroni c: N Practice ID: [id number] Billa ble Time: 10:30:00 AM Abril [facility] 12:29:10 Finding of regularit y of menstrual cycle Completed 201801/31/2021 Irregular menstruati on, unspecifie d;Recorded Elsewhere: No Locatio n: [facility] rce: EHR Chroni c: N Practice ID: [id number] Billa ble Time: 10:30:00 AM Abril [facility] 12:29:08 Problem Notes None recorded. Procedures Surgical History Date Name Laterality Status Provider Name and Address Organization Details Recorded Time 12/18/19 Date of Last Mammogram completed Josee Boyce [facility] 12/30/2024 17:08:21 02/06/20 Date of Last Pap Smear completed Thea Fry [facility] 06/15/2024 09:26:42 04/05/20 21 Endometrial Ablation completed Maryuri Chamberlain [facility] 02/05/2022 15:28:15 04/05/20 21 SALPINGECTOMY, LAPAROSCOPIC (SURG) completed Natasha Villaseñor [facility] 04/06/2021 10:18:26 02/20/20 16 completed Abril Manuel [facility] 01/31/2021 12:59:55 Cholecystectomy completed Marleen Wade [facility] 01/15/2020 11:46:15 Imaging Results None recorded. Procedure Notes None recorded. Medical Equipment None Reported. Allergies No known drug allergies Medications Name Sig Start Date Stop Date Status Note LastModified by Organization Details LastModified Time cyclobenzapr ine 10 mg tablet 12/30 completed Not Available Not Available Not Available promethazine -DM 6.25 mg-15 mg/5 mL oral syrup TK 5 ML PO Q 4 TO 6 H PRF COUGH 02/05 completed Not Available Not Available Not Available fluconazole 150 mg tablet TAKE 1 TABLET BY MOUTH EVERY 72 HOURS active Not Available Not Available No t Available valacyclovir 1 gram tablet TAKE 1 TABLET BY MOUTH EVERY 12 HOURS active Not Available Not Available No t Available hydrocodone 5 mg-acetamino phen 325 mg tablet TAKE 1 TABLET BY MOUTH EVERY 6 HOURS FOR UP TO 10 DOSES NEEDED FOR PAIN 12/30 completed Not Available Not Available Not Available fluconazole 200 mg tablet 01/31 completed Not Available Not Available Not Available prednisone 20 mg tablet 12/30 completed Not Available Not Available Not Available metronidazol e 500 mg tablet TAKE 1 TABLET BY MOUTH EVERY 12 HOURS FOR 7 DAYS 12/30 completed Not Available Not Available Not Available benzonatate 100 mg capsule 01/31 completed Not Available Not Available Not Available ergocalcifer ol (vitamin D2) 1,250 mcg (50,000 unit) capsule TAKE 1 CAPSULE BY MOUTH EVERY WEEK 12/30 completed Not Available Not Available Not Available fluticasone propionate 50 mcg/actuatio n nasal spray,suspen mame 06/25 /2025 completed Not Available Not Available Not Available doxycycline hyclate 100 mg tablet TAKE 1 TABLET BY MOUTH TWICE DAILY 02/05 completed Not Available Not Available Not Available loratadine 10 mg tablet 02/05 completed Not Available Not Available Not Available naproxen 500 mg tablet 12/30 completed Not Available Not Available Not Available ciprofloxaci n 0.3 %-dexamethas one 0.1 % ear drops,suspen mame SHAKE LIQUID AND INSTILL 4 DROPS TO LEFT EAR TWICE DAILY FOR 7 DAYS 06/15 completed Not Available Not Available Not Available cholestyrami ne (with sugar) 4 gram oral powder 12/30 completed Not Available Not Available Not Available fiber 12/30 completed Not Available Not Available Not Available Valtrex 01/14 completed Not Available Not Available Not Available Vitamin D2 01/14 completed Not Available Not Available Not Available Vitals Date Recorded Body height Body mass index (BMI) Body weight Systolic And Diastolic Provider Name and Address Organization Details Last Updated DateTime 08/02/2023 160.02 cm 36.7 kg/m2 53724.62 g 130/86 mm[Hg] Mercy Beckhma [facility] 08/02/2023 11:47:03 Date Recorded Body height Body mass index (BMI) Body weight Systolic And Diastolic Provider Name and Address Organization Details Last Updated DateTime 11/18/2024 160.02 cm 31.5 kg/m2 31276 g 125/84 mm[Hg] Odessa Michel [facility] 11/18/2024 12:12:34 Date Recorded Body height Body mass index (BMI) Body weight Systolic And Diastolic Provider Name and Address Organization Details Last Updated DateTime 12/30/2024 160.02 cm 31.5 kg/m2 32278.44 g 131/87 mm[Hg] Josee Boyce [facility] 12/30/2024 17:06:02 Date Recorded Body height Body mass index (BMI) Body weight Systolic And Diastolic Provider Name and Address Organization Details Last Updated DateTime 06/15/2024 160.02 cm 29.9 kg/m2 50177.11 g 118/80 mm[Hg] Thea Fry [facility] 06/15/2024 09:35:36 Social History Question Answer Notes LastModified by Organizat ion Details LastModified Time Tobacco Smoking Status Never Smoker Mathew gutiérrez [facility] 02/20/2022 10:00:24 Do You Have An Advance Directive? No Information n ot available 01/31/2021 Are You Blind Or Do You Have Difficulty Seeing? No Information n ot available 01/31/2021 What Is Your Level Of Caffeine Consumption? Moderate Information not available 01/31/2021 How Much Tobacco Do You Chew? None Information not available 01/31/2021 In The 14 Days Before Symptom Onset, Have You Had Close Contact With A Laboratory-confirm ed COVID-19 While That Case Was Ill? No Information n ot available 01/31/2021 In The 14 Days Before Symptom Onset, Have You Had Close Contact With A Person Who Is Under Investigation For COVID-19 While That Person Was Ill? No Information not available 01/31/2021 Have You Been To An Area Known To Be High Risk For COVID-19? No Information not available 01/31/2021 Are You Deaf Or Do You Have Serious Difficulty Hearing? No Information not available 01/31/2021 What Type Of Diet Are You Following? REGULAR Information n ot available 01/31/2021 What Is The Highest Grade Or Level Of School You Have Completed Or The Highest Degree You Have Received? [id number] Information not available 01/31/2021 Are There Any Guns Present In Your Home? No Information not available 01/31/2021 Do You Use Protection During Sex? Usually Information not available 02/05/2022 Do You Use Your Seat Belt Or Car Seat Routinely? Yes Information not available 01/31/2021 Do You Have Smoke And Carbon Monoxide Detectors In Your Home? Yes Information not available 01/31/2021 How Much Tobacco Do You Smoke? No Information not available 01/31/2021 Do You Use Sunscreen Routinely? No Information not available 01/31/2021 Have You Used IV Drugs? No Information not available 01/31/2021 Sex: Unknown Functional Status Question Answer Note LastModified by Organizat ion Details LastModified Time Do you use any illicit or recreational drugs? No Information not available 01/31/2021 What is your level of alcohol consumption? None Information not available 01/31/2021 Are you able to walk independently without assistance or assistive devices? YESWOREST Information not available 01/31/2021 What is your occupation? [employer] Information not available 01/31/2021 What is your exercise level? Moderate Information not available 01/31/2021 Mental Status Question Answer Note LastModified by Organization D etails LastModified Time Do you feel stressed (tense, restless, nervous, or anxious, or unable to sleep at night)? [id number] Information not available 02/05/2022 Family History Relationship Description Onset Age of this Age Resolved Age Notes LastModified by Organization Details LastModified Time Father Hypertensive disorder [email or web address] Not available 2019 11:45:28 Paternal Grandmother Hypertensive disorder [email or web address] Not available 2019 11:45:28 Maternal Grandmother Carcinoma in situ of breast [email or web address] Not available 2024 16:22:03 Paternal Grandfather Diabetes mellitus [email or web address] Not available 2019 11:45:49 Paternal Grandfather Heart disease [email or web address] Not available 2019 11:45:56 Maternal Aunt Anemia [email or web address] Not avail able 01/15/2020 11:46:01 Brother Asthma [email or web address] Not available 0 01/15/2020 11:46:06 Medical History No medical history recorded. Gynecological History Statement/Question Response Flow Moderate Date of Last Mammogram 12/17/2024 Date of LMP 04/04/2021 N On BCP's at Conception? N STIs/STDs Y Was last menstrual period normal Y HPV Vaccine N Duration of Flow (days) 4 Current Control Method Sterilizati on Age at First Child 19 Are cycles usually normal Y Frequency of Cycle (Q days) 5 Sexually Active? N Menses Monthly N Age of first menstrual cycle 17 Date of Last Pap Smear 02/05/2022 Sexual Problems? N LMP Approximate Desired Control Method Ablation 02/20/2016 N Obstetrics History GPAL:G 6 P 2 0 4 2 Type Value Full Term 2 Induced 4 Living 2 Total 6 Past Encounters Encounter ID Performer Location Encounter Start Date Encounter Closed Date Diagnosis/Indication Diagnosis SNOMED-CT Code Diagnosis ICD10 Code Diagnosis IMO Codes Diagnosis Note [id number] Mindy Ross [facility] [address],[facility] [place] [address] 01/15/2020 14:05:18 01/15/2020 14:33:25 Gynecologic examination [id number] Z01.419 Take Calcium with Vitamin D 1200mg daily if not receiving in daily diet. It is strongly advised to have an annual flu shot and up can obtain at most pharmacies . If you have not had a TDap shot in the last 10 years you should obtain one as well. Discussed with patient & provided with informatio n regarding Gardisil vaccine to prevent the 4 strains for HPV that cause cervical cancer if under age 26. Encourage safe sexual practices, to use condoms and limit partners if not already in a monogamous relationsh ip. Do monthly self breast exams. Have mammogram yearly or every other year depending on family history. BRCA testing is now available for patients with strong genetic history of female cancer. If interested contact the office. Engage in daily exercise of low impact aerobic exercise 45-60 minutes 4-5 times weekly. Avoid tobacco and illicit drugs as well as using moderation with alcohol intake less than 1-2 8 oz beverages daily. This lifestyle behavior pattern will lead to less health conditions and longer life span. If BMI greater than 25 weight watchers or dietary consult advised. Patient received above instructio ns, and questions have been answered. If you have any questions please call or respond to this email. Patient was made aware of the patient portal and may obtain a paper copy of today's plan if desired. Pap/hPV/ST D sent Vitamin D deficiency [phone] [id number] E55.9 R/P Vitamin D levels this year. Stopped Vitamin D supplement ation. [id number] Mindy Ross [facility] [address] [address] 01/31/2021 12:49:25 01/31/2021 13:39:25 Gynecologic examination 37242606 Z01.419 Take Calcium with Vitamin D 1200mg daily if not receiving in daily diet. It is strongly advised to have an annual flu shot and up can obtain at most pharmacies . If you have not had a TDap shot in the last 10 years you should obtain one as well. Discussed with patient & provided with informatio n regarding Gardisil vaccine to prevent the 4 strains for HPV that cause cervical cancer if under age 26. Encourage safe sexual practices, to use condoms and limit partners if not already in a monogamous relationsh ip. Do monthly self breast exams. Have mammogram yearly or every other year depending on family history. BRCA testing is now available for patients with strong genetic history of female cancer. If interested contact the office. Engage in daily exercise of low impact aerobic exercise 45-60 minutes 4-5 times weekly. Avoid tobacco and illicit drugs as well as using moderation with alcohol intake less than 1-2 8 oz beverages daily. This lifestyle behavior pattern will lead to less health conditions and longer life span. If BMI greater than 25 weight watchers or dietary consult advised. Patient received above instructio ns, and questions have been answered. If you have any questions please call or respond to this email. Patient was made aware of the patient portal and may obtain a paper copy of today's plan if desired. Pap/hPV/ST D sentMammo due next year Vitamin D deficiency 347 75515 E55.9 R/P Vitamin D levels this year. on Vitamin D supplement ation. Menorrhagia 719175362 N9 2.0 Menses have always been heavier.Sh e is done having kids & wants to consider endo ablation with possible tubal.She was not interested in hormonal methods of BC/Therpie s/LARC's.R ecommended consult to discuss best option for her douglas if interested in endo ablation.W ill schedule MD consult. [id number] Zander Howard MD [facility] [address] [address] 02/16/2021 15:14:01 02/16/2021 16:03:40 Menorrhagia 461092218 N92.0 This patient is a 40-year-ol d female presents for heavy vaginal bleeding. She has longstandi ng very heavy bleeding. Her menses are regular. However, they require double protection . Patient has accidents, getting blood on her bedding and clothing. Is affected work. She changes a pad or tampon every hour. She leaks blood around the pad and tampon. This bleeding has a profound impact on her quality of life and her activities of daily living. we discussed treatment options. Patient has already failed medical treatments . She has tried the vaginal ring and also Depo shot. She is unable to take pills. We have agreed to proceed with endometria l ablation and bilateral salpingect duc. Patient will have an ultrasound prior to proceeding . It will be scheduled in the interim. We spent more than 25 minutes face-to-fa ce discussing treatment options for menorrhagi a, etiology, natural history, nature of heavy bleeding and likely diagnoses. We discussed the endometria l ablation and bilateral salpingect duc in detail. [id number] Zander Howard MD [facility] [address] [address] 02/27/2021 15:01:30 02/27/2021 15:42:53 Menorrhagia [id number] N92.0 This patient is a 40-year-ol d female presents for heavy vaginal bleeding. She has longstandi ng very heavy bleeding. Her menses are regular. However, they require double protection . Patient has accidents, getting blood on her bedding and clothing. Is affected work. She changes a pad or tampon every hour. She leaks blood around the pad and tampon. This bleeding has a profound impact on her quality of life and her activities of daily living. we discussed treatment options. Patient has already failed medical treatments . She has tried the vaginal ring and also Depo shot. She is unable to take pills. We have agreed to proceed with endometria l ablation and bilateral salpingect duc. Patient will have an ultrasound prior to proceeding . It will be scheduled in the interim. We spent more than 25 minutes face-to-fa ce discussing treatment options for menorrhagi a, etiology, natural history, nature of heavy bleeding and likely diagnoses. We discussed the endometria l ablation and bilateral salpingect duc in detail. [id number] Zander Howard MD [facility] [address] [address] 03/29/2021 15:05:59 03/29/2021 17:58:46 Menorrhagia 226609238 N92.0 this patient is a 40-year-ol d female with menorrhagi a and unwanted fertility. We have agreed to perform endometria l ablation and laparoscop ic bilateral salpingect duc. She understand s the risks, benefits, and alternativ es. She has completed the informed consent process and is ready to proceed. [id number] Zander Howard MD [facility] [address] [address] 04/06/2021 09:37:21 04/06/2021 09:40:32 [id number] Zander Howard MD [facility] [address] [address] 04/12/2021 17:30:35 04/12/2021 17:56:45 Postoperative care [id number] Z48.89 this patient is a 40-year-ol d female presents for follow-up on menorrhagi a. this patient presents for postop follow-up. She is 1 week postop from a Hysterosco py D&C. with ablation and laparoscop ic bilateral salpingect duc. She is recovering normally. Her bleeding is minimal. She has no foul-smell ing vaginal discharge. She denies any nausea, vomiting, fever, chills. Her incisions are clean dry and intact. She will follow up as needed. [id number] Zander Howard MD [facility] [address] [address] 04/19/2021 12:14:02 04/19/2021 14:41:23 Infection of uterus 496740393 N71.9 This patient is a 40-year-ol d female who is 2 weeks postop from a endometria l ablation. She presents complainin g of foul-smell ing vaginal discharge. It is sandra and purulent. She denies any nausea, vomiting, fever, chills. She was examined. There is some foul copious watery sandra, pearly discharge, blood tinged. we discussed these findings. I suspect that there is some endometrit is present. We are going to treat with antibiotic s. She is going to return in 4 days. She was given extensive precaution s. [id number] MD Delfina Dill [address],[place] [address] 04/25/2021 16:28:44 04/25/2021 17:03:11 Infection of uterus 044787768 N71.9 This patient is a 40-year-ol d female presents for follow-up on endometrit is. She appeared to possibly have a infection of the endometriu m a after endometria l ablation. She was treated with antibiotic s in the foul-smell ing vaginal discharge has resolved. There is still a discharge with light pink tinge. There is no odor. She denies any nausea, vomiting, fever, chills. She will Follow-up as needed. [id number] Zander Howard MD [facility] [address],[place] [address] 02/05/2022 15:03:30 02/05/2022 15:42:10 Pain in pelvis 03250114 R10.2 Gynecologi c examination 50645493 Z01.419 Annual gynecologi florencio exam performed. Patient will come back in a year unless there are new symptoms. Suggest Calcium with Vitamin D if not eating in diet. Patient advised to get annual flu shot. Recommend yearly physicals and preform monthly breast exams. Genetic testing is available for patients with family history of cancer. Engage in safe sexual practices, use condoms. Encouraged to have daily exercise. Avoid tobacco and illicit drugs, moderation of alcohol. If BMI greater than 25 dietary consult advised. If you have any questions please call or email. Mammogram - ordered Colonoscop y - na Cholestero l - ordered Pap - today [id number] Zander Howard MD [facility] [address],[place] [address] 02/07/2022 18:01:19 02/07/2022 18:42:23 Pain in pelvis 83461078 R10.2 [id number] Zander Howard MD [facility] [address],[place] [address] 02/20/2022 10:00:17 02/20/2022 10:27:17 Abdominal pain 73813977 R10.9 41-year-ol d female presents for follow-up on abdominal pain and pelvic pain. Discussed her pain and to a greater degree today. It does sound abdominal. Her pelvic ultrasound is normal. She has a pain that moves with position changes. It moves throughout her abdomen. It changes when she lays on her sides. Patient also reports chronic diarrhea. She says that every stool is loose and thin. She reports urgency of stool a bowel movement. We will refer this patient to gastroente rology. She has no menses. Spent 15 minutes face-to-fa ce. Discussed difficult problem, complex. [id number] ELIZABETH Kruse [facility] [address] [address] 08/02/2023 11:40:12 08/02/2023 12:46:13 Gynecologic examination 36258253 Z01.419 WWEpap due per asccp guidelines STI testing declineden couraged annual exam with PCP Suggested Calcium with Vitamin D daily. Patient advised to get an annual flu shot in the fall and she could obtain at [facility] or [facility] clinic. Also to obtain TDap vaccinatio n if you have not had one in the last 10 years. Recommend yearly mammograms . Encouraged monthly self breast exams. Encourage safe sexual practices, to use condoms and limit partners if not already in a monogamous relationsh ip. Engage in daily exercise of low impact aerobic exercise 45-60 minutes 4-5 times weekly. Avoid tobacco and illicit drugs. This lifestyle behavior pattern will lead to less health conditions and longer life span. If BMI greater than 25 dietary consult advised. All questions have been answered. Patient appears to understand informatio n, but if you have any questions please call or respond to this email. Screening for malignant neoplasm of breast 647259048 Z12.39 left breasts with lumps/dens e tissue at 06/07oclock diagnostic mammogram with u/s ordered [id number] Zander Howard MD [facility] [address] [address] 06/15/2024 09:29:51 06/15/2024 10:26:41 Gynecologic examination 47232648 Z01.419 Annual gynecologi florencio exam performed. Patient will come back in a year unless there are new symptoms. Suggest Calcium with Vitamin D if not eating in diet. Patient advised to get annual flu shot. Recommend yearly physicals and perform monthly breast exams. Genetic testing is available for patients with family history of cancer. Engage in safe sexual practices, use condoms. Encouraged to have daily exercise. Avoid tobacco and illicit drugs, moderation of alcohol. If BMI greater than 25 dietary consult advised. If you have any questions please call or email. mammogram- patient follows up for diagnostic mammogram w/ ultrasound every 6 months to monitor probable fibroadeno ma. Patient states that she already has mammogram scheduled in September 2024. Discussed that no masses were palpated on exam today. Pap smear- UTD (2021 - WN), will repeat in 2024 per ASCCP guidelines . laboratory evaluation - declined STI testing - requested Venereal d isease screening [id number] Z11.3 Pt requested STI testing.Di scussed the various types of STDs, related symptoms and the potential consequenc es (including effects on fertility) of STD infections . Reviewed ways to limit exposure and prevention techniques . [id number] ELIZABETH Kruse [facility] [address] [address] 11/18/2024 11:55:25 11/18/2024 16:03:21 Pain in pelvis 03768481 R10.2 [id number] This patient is a 43 -year-old female with pelvic pain. We have agreed to complete the evaluation with pelvic ultrasound . The patient will return after the pelvic ultrasound to discuss those findings and to develop a treatment plan. A comprehens ye history and physical exam was performed today. We spent over 25 minutes face-to-fa ce. The patient was given precaution s. She will contact clinic if pelvic pain increases in frequency or intensity. Also notify clinic of any new symptoms associated with pelvic pain. She does not appear to have an acute pelvic infection today, but was asked to contact us Immediatel y with nausea, vomiting, fever, chills. UPT (-)gc/ct/t rich testing sentHIV/He p B&C/Syphil is testing ordered per pt requestUA done, cx sent Venereal d isease screening [id number] Z11.3 01738 Sexually t ransmitted infectious disease 8856444 A64 Lump of ax illary tail of left breast [id number] 55157 N63.32 [id number] order given for left diagnostic mammogram with u/s [id number] Zander Howard MD [facility] [address] [address] 11/23/2024 17:21:48 11/24/2024 06:41:22 Pain in pelvis 54464807 R10.2 [id number] Zander Howard MD [facility] [address] [address] 12/30/2024 16:21:19 01/04/2025 09:12:32 Menopausal symptom 69342500 N95.1 [id number] 44-year-ol d female. We discussed her ultrasound results. She is here for pelvic pain. We discussed her menopausal symptoms. We will check her labs. She has fluid within the postablati ve endometriu m. We discussed that. Her pelvic pain is not a priority at this time. We agreed to observe. Will follow up on sex hormones and contact the patient. Spent over 20 minutes on the patient's care in total. Abnormal u terine bleeding [id number] 9100 N93.9 Health Concerns Section Related Observation LastModified by Organization Detai ls LastModified Time None Recorded Concern Status LastModified by Organization Details LastModified Time None Recorded Advance Directives Directive N: Payers Insurance Date Sequence Insurance Name Policy Number Policy Sahu Covered Member ID Sahu Member ID Guarantor Name 11/22/2024 1 [facility] [employer] [id number] Werner Hauser [id number] Werner Hauser 11/22/2024 [facility] Werner Hauser [id number] Werner Hauser 12/30/2024 1 [place] [employer] Werner Hauser [id number] Werner Hauser 11/22/2024 1 [facility] (MEDICAID HMO) [id number] Werner Hauser [id number] Werner Hauser 12/30/2024 1 [facility] - DOS ON OR AFTER 21 (MEDICAID REPLACEMENT - HMO) Werner Hauser [id number] Werner Hauser 11/22/2024 [facility] Werner Hauser [id number] Werner Hauser Notes Date Note Type Note Provider Name and Address Organization Details Recorded Time 4 text/html Annual GYNReported by PatientGenitourinary symptomsFor menstrual cycle, patient reportsnormal menses. For urinary symptoms, patient reportsno hematuriaandno incontinence. For vulva, patient reportsno genital lesion. For vagina, patient reportsnormal vaginal discharge.Breast symptomsFor breast, patient reportsno breast pain,no breast lump, andno nipple discharge.ContraceptionFo r current contraception, patient reportssatisfied with current contraception(bs).Endocri ne symptomsFor sexual complaints, patient reportsno sexual complaints,no pain during intercourse, andnormal libido. For menopausal symptoms, patient reportsno menopausal symptomsandnormal vaginal lubrication.Psychological symptomsFor psychological symptoms, patient reportsno depression,no anxiety, andno pmdd.Preventative measuresFor preventive measures, patient reportsencourage self breast examination,encourage regular exercise,encourage no tobacco use, andencourage regular mammograms starting age 40.WWEBS for BCablation, no periods sincepap UTD 02/2022 - normalmammogram 2 yrs ago ELIZABETH Kruse [address], [place], [address], [facility] 08/02/2023 12:46:01 4 text/html Annual GYNReported by PatientGenitourinary symptomsFor urinary symptoms, patient reportsno hematuriaandno incontinence. For vulva, patient reportsno genital lesion. For vagina, patient reportsnormal vaginal discharge. For menstrual cycle, (none - ablation).Breast symptomsFor breast, patient reportsno breast pain,no breast lump, andno nipple discharge.ContraceptionFo r current contraception, patient reportssatisfied with current contraceptionandtubal ligation.Endocrine symptomsFor sexual complaints, patient reportsno sexual complaints,no pain during intercourse, andnormal libido. For menopausal symptoms, patient reportsno menopausal symptomsandnormal vaginal lubrication.Psychological symptomsFor psychological symptoms, patient reportsno depression,no anxiety, andno pmdd.Preventative measuresFor preventive measures, patient reportsencourage self breast examination,encourage regular exercise,encourage no tobacco use, andencourage regular mammograms starting age 40. Patient presents for annual well woman exam. Patient denies concerns today. CAROLIN LEUNG NP [address], [place], [address], [facility] 06/15/2024 10:26:31 5 text/html 43yopresents for evaluation of pelvic pain x 3 monthss/p BS, endometrial ablation 2020no vaginal bleeding since ablationlower midline pelvic pain x 3 months, comes and goes, notices a few times per month, cramping/acheneg partner recently, would like STI testing left breast lump x 1 weekslightly tenderpatient follows up for diagnostic mammogram w/ ultrasound every 6 months to monitor probable fibroadenoma. Last imaging done 09/2024 neg d/c, odors, itchingneg urinary symptomsneg n/v/fneg flu-lke symptomsbowel movements wnl ELIZABETH Kruse [address], [place], [address], [facility] 11/18/2024 14:51:03 5 text/html 44-year-old female. We discussed her ultrasound results. She is here for pelvic pain. We discussed her menopausal symptoms. We will check her labs. She has fluid within the postablative endometrium. We discussed that. Her pelvic pain is not a priority at this time. We agreed to observe. Will follow up on sex hormones and contact the patient. Spent over 20 minutes on the patient's care in total. Zander Howard MD [address], [place], [address], [facility] 01/02/2025 13:29:10 OBGyn Episode Ob Episode Information Episode Created Date Number of Fetuses Patient Bloodtype Patient rh Status Prepregnancy Weight lbs Domestic Partner Domestic Partner Phone Father Name Spool Sander Status 01/15/20 20 1 CLOSED Fetus Data First Name Last Name Admitted to NICU Weight (g) Sex Living Outcome Pediatric Complications Fetus ID Race Codes Race Delivery Type 3175.14 4 M Full Term [id number] Vaginal Delivery Pio Calculation Initial Pio Date Initial Exam Date Initial Exam Provider Initial Ultrasound Date Last Menstrual Period Date Ultra Sound Weeks Gestation 0 Eighteen To Twenty Week Pio Update Ultra Sound Date Fundal Height At Umbil Quickening Date Ultra Sound Latest Weeks Gestation Final Pio Confirmed By Final Pio Confirmed Date Final Pio Date Ultra Sound Latest Days Gestation 0 0 Menstrual History Last Menstrual Date Menses Monthly On Bcp Conception Prior Menses Frequency Hcg Plus Date Menarche Onset Age Delivery Information Delivery Date Delivery Type Labor Anesthesia Weeks Gestation Incision Type Labor Labor Length Hrs Delivered By Post Complications Tubal Sterilization Discharge Date Comments 1 40 Jose o n Discharge Information Feeding Method Contraceptive Method Maternal HG B and HCT Levels Ob Episode Information Episode Created Date Number of Fetuses Patient Bloodtype Patient rh Status Prepregnancy Weight lbs Domestic Partner Domestic Partner Phone Father Name Spool Sander Status 01/15/20 20 1 CLOSED Fetus Data First Name Last Name Admitted to NICU Weight (g) Sex Living Outcome Pediatric Complications Fetus ID Race Codes Race Delivery Type 3543.46 0704 F Full Term 2838 Vaginal Delivery Pio Calculation Initial Pio Date Initial Exam Date Initial Exam Provider Initial Ultrasound Date Last Menstrual Period Date Ultra Sound Weeks Gestation 0 Eighteen To Twenty Week Pio Update Ultra Sound Date Fundal Height At Umbil Quickening Date Ultra Sound Latest Weeks Gestation Final Pio Confirmed By Final Pio Confirmed Date Final Pio Date Ultra Sound Latest Days Gestation 0 0 Menstrual History Last Menstrual Date Menses Monthly On Bcp Conception Prior Menses Frequency Hcg Plus Date Menarche Onset Age Delivery Information Delivery Date Delivery Type Labor Anesthesia Weeks Gestation Incision Type Labor Labor Length Hrs Delivered By Post Complications Tubal Sterilization Discharge Date Comments 6 40 DaNyia Discharge Information Feeding Method Contraceptive Method Maternal HG B and HCT Levels Ob Episode Information Episode Created Date Number of Fetuses Patient Bloodtype Patient rh Status Prepregnancy Weight lbs Domestic Partner Domestic Partner Phone Father Name Spool Sander Status 01/15/20 20 1 CLOSED Fetus Data First Name Last Name Admitted to NICU Weight (g) Sex Living Outcome Pediatric Complications Fetus ID Race Codes Race Delivery Type , Induced [id number] Pio Calculation Initial Pio Date Initial Exam Date Initial Exam Provider Initial Ultrasound Date Last Menstrual Period Date Ultra Sound Weeks Gestation 0 Eighteen To Twenty Week Pio Update Ultra Sound Date Fundal Height At Umbil Quickening Date Ultra Sound Latest Weeks Gestation Final Pio Confirmed By Final Pio Confirmed Date Final Pio Date Ultra Sound Latest Days Gestation 0 0 Menstrual History Last Menstrual Date Menses Monthly On Bcp Conception Prior Menses Frequency Hcg Plus Date Menarche Onset Age Delivery Information Delivery Date Delivery Type Labor Anesthesia Weeks Gestation Incision Type Labor Labor Length Hrs Delivered By Post Complications Tubal Sterilization Discharge Date Comments 2 x3 Discharge Information Feeding Method Contraceptive Method Maternal HG B and HCT Levels
--- OUTSIDE RECORDS SUMMARY | 2025-05-07 11:17 | XMS_ITS | Clinical Summary ---
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 Gender Identity Female 03/20/2024 9:07 AM CDT Sexual Orientation Straight 03/20/2024 9: 07 AM CDT Plan of Treatment Health Maintenance Due Date Last Done Comments TdaP Immunization 1981 Hepatitis B Immunization (1 of 3 - 19+ 3-dose series) 2000 Pap Smear 2002 Human Papillomavirus (HPV) Immunization (1 - 3-dose SCDM series) 2008 Cervical Cancer Screening ([facility]) 12/04/2011 HPV/Cotest 12/04/2011 Influenza Immunization (#1) 2025 SARS-COV-2 Immunization ( season) 2025 08/20/2020, 07/30/2020 Mammogram 09/17/2025 09/17/2024, 09/16/2023 Respiratory Syncytial Virus (RSV) Immunization (Adult) (1 - 1-dose 75+ series) 2056 DTaP/Tdap/Td Immunization Discontinued 1995, 03/18/1984, 11/12/1983, Additional history exists Discussion re Starting/Frequency of Mammograms Completed 09/17/2024, 03/20/2024, 09/16/2023 Hepatitis C Virus (HCV) Screening Completed 11/18/2024 Meningococcal Immunization (ACWY) Aged Out No longer eligible based on patient's age to complete this topic Pneumococcal Immunization Combined Aged Out No longer eligible based on patient's age to complete this topic Rotavirus Immunization Aged Out No lo nger eligible based on patient's age to complete this topic Procedures Procedure Name Priority Date/Time Associated Diagnosis Comments VIVI DIAG BILATERAL DIGITAL W CAD W SOUMYA Routine 09/17/2024 8:51 AM CDT Mass of left breast, unspecified quadrant from Last 3 Months or Most Recently Relevant to Health Maintenance Results * VIVI DIAG BILATERAL DIGITAL W CAD W SOUMYA (09/17/2024 8:51 AM CDT) Anatomical Region Laterality Modality breast Bilateral Mammography 09/17/2024 8:24 AM CDT Narrative 09/17/2024 12:56 PM CDT - VIVI DIAG BILATERAL DIGITAL W CAD W SOUMYA - VIVI US BREAST LIMITED LT BILATERAL DIGITAL DIAGNOSTIC MAMMOGRAM 3D/2D WITH CAD WITH MEDIOLATERAL OBLIQUE CRANIOCAUDAL AND TARGETED LEFT ULTRASOUND: 09/17/2024 The study was acquired using digital technology and interpreted from soft copy. Current study was also evaluated with ICAD version 7.2. 2D digital mammographic views, as well as 3D digital tomosynthesis were performed in the CC and MLO projections. CLINICAL: Diagnostic study. Patient returns for a 6 month follow-up left breast. Right annual. No complaints. No personal history of cancer. Maternal grandmother had breast cancer. COMPARISONS: Comparison is made to exams dated: 04/03/2022 [facility], 09/16/2023, and 03/20/2024 [facility]. BREAST TISSUE:There are scattered areas of fibroglandular density. FINDINGS: DIAGNOSTIC BILATERAL MAMMOGRAM Lesion in the posterior superior tissues of the left breast is again identified and unchanged. There are no suspicious so seated microcalcifications. No new significant masses or calcifications are seen in either breast on the mammogram. The appearance of left axillary lymph nodes is unchanged over 1 years time. TARGETED LEFT BREAST ULTRASOUND Targeted left breast ultrasound was performed in the region of interest. Again identified at the 11 o'clock position 10 cm from the nipple is an oval circumscribed predominantly homogeneously hypoechoic mass. It measures 1.1 x 0.4 x 0.8 cm. There is no evidence of color flow. No posterior acoustical features are appreciated. This correlates with the mammographic finding. This is not significantly changed over 1 years time. This most likely represents a fibroadenoma and is probably benign. IMPRESSION: OVERALL STUDY BIRADS: CATEGORY 3: PROBABLY BENIGN Mass at the 11 o'clock position of the left breast is probably benign. A follow-up mammogram and an ultrasound in 12 months is recommended. The results and recommendations were discussed with the patient. Electronically signed by: Asuncion Fuentes M.D. ab/:09/17/2024 09:20:24 Food Selector(s): RT Hasmukh(R)(M), [facility]; Olivia Urias, [facility] letter sent: Birad 3 Followup Reading location: [facility] STUDY BIRADS: Category 3: Probably Benign Procedure Note Asuncion Fuentes MD - 09/17/2024 - VIVI DIAG BILATERAL DIGITAL W CAD W SOUMYA - VIVI US BREAST LIMITED LT BILATERAL DIGITAL DIAGNOSTIC MAMMOGRAM 3D/2D WITH CAD WITH MEDIOLATERAL OBLIQUE CRANIOCAUDAL AND TARGETED LEFT ULTRASOUND: 09/17/2024 The study was acquired using digital technology and interpreted from soft copy. Current study was also evaluated with ICAD version 7.2. 2D digital mammographic views, as well as 3D digital tomosynthesis were performed in the CC and MLO projections. CLINICAL: Diagnostic study. Patient returns for a 6 month follow-up left breast. Right annual. No complaints. No personal history of cancer. Maternal grandmother had breast cancer. COMPARISONS: Comparison is made to exams dated: 04/03/2022 [facility], 09/16/2023, and 03/20/2024 [facility]. BREAST TISSUE:There are scattered areas of fibroglandular density. FINDINGS: DIAGNOSTIC BILATERAL MAMMOGRAM Lesion in the posterior superior tissues of the left breast is again identified and unchanged. There are no suspicious so seated microcalcifications. No new significant masses or calcifications are seen in either breast on the mammogram. The appearance of left axillary lymph nodes is unchanged over 1 years time. TARGETED LEFT BREAST ULTRASOUND Targeted left breast ultrasound was performed in the region of interest. Again identified at the 11 o'clock position 10 cm from the nipple is an oval circumscribed predominantly homogeneously hypoechoic mass. It measures 1.1 x 0.4 x 0.8 cm. There is no evidence of color flow. No posterior acoustical features are appreciated. This correlates with the mammographic finding. This is not significantly changed over 1 years time. This most likely represents a fibroadenoma and is probably benign. IMPRESSION: OVERALL STUDY BIRADS: CATEGORY 3: PROBABLY BENIGN Mass at the 11 o'clock position of the left breast is probably benign. A follow-up mammogram and an ultrasound in 12 months is recommended. The results and recommendations were discussed with the patient. Electronically signed by: Asuncion Fuentes M.D. ab/:09/17/2024 09:20:24 Food Selector(s): Kathy Rahman RT(R)(M), [facility]; Olivia Urias, [facility] letter sent: Magaly 3 Followup Reading location: [facility] OVERALL STUDY BIRADS: Category 3: Probably Benign us Zander Howard IM MAMMO ORDERABLES Final Resul t from Last 3 Months or Most Recently Relevant to Health Maintenance Insurance [employer] Care Teams Wood Pattern Maker Relationship Specialty Start Date End Date Provider, None [place] PCP - General 09/16/23
--- OUTSIDE RECORDS SUMMARY | 2025-05-07 11:17 | XMS_ITS | Clinical Summary ---
Author Organization [facility] Address [address] [place] [id number] Care Team Providers Care Automobile Racer Name Role Phone No, Physician Primary Care Provider [phone] Allergies No known active allergies Medications cyclobenzaprine (FLEXERIL) 10 mg tablet Take 1 tablet (10 mg total) by mouth 3 (three) times a day as needed for muscle spasms for up to 20 doses 20 tablet 03/14/2023 Active lidocaine (LIDODERM) 5 %Indications:Pa in Place 1 patch on the skin daily Use patch for 12 hours on, 12 hours off. Discard after each use 7 patch 03/14/2023 Active HYDROcodone-jordan taminophen (NORCO) 5-325 mg per tabletIndicatio ns:Pain Take 1 tablet by mouth every 6 (six) hours as needed for pain for up to 10 doses 10 tablet 03/14/2023 Active naproxen (NAPROSYN) 500 mg tablet Take 1 tablet (500 mg total) by mouth 2 (two) times a day with meals 30 tablet 03/14/2023 Active Immunizations Immunization Administration Dates Next Due DTP 03/18/1984,11/12/1983,06/20/1982 ,03/21/1982,01/17/1982 MMR 03/24/1992,04/14/1983 OPV 03/18/1984,11/12/1983,03/21/1982 ,01/17/1982 Td, adsorbed 03/13/1996 Social History Tobacco Use Types Packs/Day Years Used Date Smoking Tobacco: Never Assessed Personal Safety Answer Date Recorded Have you ever been in or are you currently in a harmful physical or emotional relationship or is someone making you feel afraid or unsafe? 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 Gender Identity Not on file Sexual Orientation Not on file Last Filed Vital Signs Vital Sign Reading Time Taken Comments Blood Pressure 126/80 11/09/2023 8:20 AM CDT Pulse 74 11/09/2023 8:20 AM CDT Temperature 37 C (98.6 F) 11/09/2023 8:20 AM CDT Respiratory Rate 18 11/09/2023 8:20 AM CDT Oxygen Saturation 100% 11/09/2023 8:20 AM CDT Inhaled Oxygen Concentration - - Weight 82.1 kg (181 lb) 11/09/2023 8:20 AM CDT Height 157.5 cm (5' 2) 03/14/2023 6:51 PM CDT Body Mass Index 33.1 03/14/2023 6:51 PM CDT Plan of Treatment Health Maintenance Due Date Last Done Comments Cervical Cancer Screening 1981 Depression Screening 1981 Hepatitis C Screening 1981 Varicella Vaccines (1 of 2 - 13+ 2-dose series) 1994 DTaP/Tdap/Td Vaccine (5 - Tdap) 03/14/1996 03/13/1996, 03/18/1984, 11/12/1983, Additional history exists Hepatitis B Screening 12/04/1999 Regular Well Visit/Exam 18-64 12/04/1999 HPV Vaccines (1 - 3-dose SCDM series) 2008 Covid-19 Vaccine (3 - season) 2025 08/20/2020, 07/30/2020 Influenza Vaccine (#1) 2025 Breast Cancer Screening-Mammogram 09/17/2025 09/17/2024, 09/17/2024, 09/16/2023, Additional history exists Pneumococcal vaccine <65 Aged Out No longer eligible based on patient's age to complete this topic Insurance [facility] [employer] Care Teams Automobile Racer Relationship Specialty Start Date End Date No, Physician PCP - General 06/30/21
--- OUTSIDE RECORDS SUMMARY | 2025-05-07 11:17 | XMS_ITS ---
Author Organization [facility] Address [address] [facility] [place] [address] Care Team Providers Care Deputy Manager Name Role Phone Provider, None Primary Care Provider [facility] Status:Enrolled (Active) Start date:12/17/2024 Enrollment date:12/17/2024 Related social drivers of health:Intimate Partner Violence, Social Connections, Alcohol Use, Tobacco Use, Financial Resource Strain,Depression, Stress, Physical Activity, Food Insecurity, Transportation Needs, Housing Stability, Utilities Continued Care and Services Coordination
--- OUTSIDE RECORDS SUMMARY | 2025-05-07 11:17 | XMS_ITS | Clinical Summary ---
Author Organization [facility] Address [address] [place] [id number] Care Team Providers Care Sole Skiver Name Role Phone Mecca Jackson Primary Care Provider Social History Tobacco Use Types Packs/Day Years Used Date Smoking Tobacco: Never Assessed Comments Unknown Sex and Gender Information Value Date Recorded Sex Assigned at Not on file Legal Sex Female 8:34 PM CDT Gender Identity Not on file Sexual Orientation Not on file Plan of Treatment Health Maintenance Due Date Last Done Comments Cervical Cancer Screening Pa p Smear (Age 30 to 64) Every 3 Years 1981 Annual Physical 1984 Hepatitis C 12/04/1999 DTaP, Tdap and Td Vaccines ( 1 - Tdap) 2000 Hepatitis B Vaccines (1 of 3 - 19+ 3-dose series) 2000 HPV Vaccines (1 - 3-dose SCD M series) 2008 Cervical Cancer Screening Pa p with HPV Testing (Age 30 to 64) Every 5 Years 12/04/2011 Cervical Cancer Screening with HPV 12/04/2011 Mammogram Screening 2021 COVID-19 Vaccine (2024-2 6 season) 2025 Influenza Adult (#1) 2025 Hepatitis A Vaccines Aged Out No long er eligible based on patient's age to complete this topic Meningococcal B Vaccine Aged Out No l onger eligible based on patient's age to complete this topic Meningococcal Vaccine Aged Out No xochitl jama eligible based on patient's age to complete this topic Pneumococcal Vaccine: Pediat rics (0 to 5 Years) and At-Risk Patients (6 to 49 Years) Aged Out No longer eligible b ased on patient's age to complete this topic RSV Immunizations Under 20 Months Aged Out No longer eligible based on patient's age to complete this topic Care Teams Sole Skiver Relationship Specialty Start Date End Date Mecca Jackson PA [id number] [place] [address] PCP - General 02/29/16
--- NOTE | 2025-05-07 14:27 | ED.ABDPAIN ---
HPI - Abdominal Pain General Chief Complaint: Abdominal Pain Stated Complaint: lower abd. cramping Time Seen by Provider: 05/07/25 14:03 History of Present Illness HPI narrative: Werner is a 44 year old female presenting to the emergency department with a chief complaint of left lower quadrant abdominal pain. The patient reports a history of intermittent, cramp-like lower abdominal pain that previously occurred approximately once a month but has recently become more frequent and severe. The current episode began to worsen yesterday and has continued to progress today. The pain is localized to the left lower quadrant and is tender to palpation. It radiates to the left lower back, left hip, and down into the left thigh. The patient notes the pain is exacerbated by activity, specifically when stepping down on her left foot. 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 Associated symptoms include a change in bowel habits; she reports feeling constipated prior to this morning, at which time she had an episode of diarrhea. She denies any nausea, vomiting, or fever. She has had no oral intake today. Pertinent gynecological history includes a uterine ablation and bilateral salpingectomy; she denies any possibility of . She has a known history of small ovarian cysts. She denies any vaginal discharge or other concerns. The patient received a flu vaccine yesterday, but symptoms predated the vaccination. Related Data Home Medications ?Medication ?Instructions ?Recorded ?Confirmed ?Last Taken ?Type cholecalciferol (vitamin D3) 125 125 mcg PO DAILY 03/29/21 12/30/24 Unknown History mcg (5,000 unit) tablet (Vitamin D3) ktgddtgicsyx-Qc-kpiz-minerals 27 1 tablet PO DAILY 03/29/21 12/30/24 Unknown History mg-0.4 mg tablet valacyclovir 1 gram tablet 1,000 mg PO PRN PRN Outbreak 03/29/21 12/30/24 Unknown History (Valtrex) Allergies Allergy/AdvReac Type Severity Reaction Status Date / Time No Known Allergies Allergy Verified 05/07/25 11:06 Review of Systems Review of Systems: Constitutional: Denies fever. Gastrointestinal: Positive for abdominal pain and a change in bowel habits (constipation followed by diarrhea). Denies nausea or vomiting. Reports anorexia today. Genitourinary: Denies vaginal discharge. Musculoskeletal: Positive for pain in the left lower back and left hip, which radiates from the abdomen. Allergic/Immunologic: Denies any known drug allergies. All systems reviewed & are unremarkable except as noted in HPI and below PMFSH Past Medical History Medical History Obesity Chronic diarrhea History of stent insertion of renal artery and removal for kidney stones Cholecystitis, acute Kidney stones Surgical History Surgical History Hx of cholecystectomy History of lithotripsy Family History Family History Father Hypertension Mother Alive and well Social History Social History Smoking status: Never smoker Tobacco type: cigarettes Second hand tobacco smoke exposure: Yes Alcohol intake: never Substance use: never Substance use type: does not use Living arrangements: with family Occupation/Education: occupation Additional occupation/education comments: [employer] Gender identity (if verbalized by the patient): Female Sexual Orientation (if Verbalized by the Patient): Straight or Heterosexual Spiritual care concerns: No Exam Narrative: GENERAL: Well-appearing, well-nourished, uncomfortable appearing HEAD: Normocephalic, atraumatic. ENT:? Mucous membranes moist. CHEST: Clear to auscultation.? No respiratory distress. HEART: Regular rate and rhythm. ? Normal peripheral pulses. ABDOMEN: Soft, nondistended, LLQ tenderness to palpation without guarding or rebound. EXTREMITIES: Normal range of motion. No peripheral edema. SKIN: Warm dry normal color NEURO: Alert and oriented x3. PSYCH: Normal mood and affect Course Vital Signs Vital signs: Vital Signs Temperature 36.4 C 05/07/25 11:02 Pulse Rate 65 05/07/25 11:02 Respiratory Rate 12 05/07/25 11:02 Blood Pressure 131/76 05/07/25 11:02 Pulse Oximetry 100 05/07/25 11:02 Oxygen Delivery Room Air 05/07/25 11:02 Temperature 36.4 C 05/07/25 11:02 Pulse Rate 78 05/07/25 17:01 Respiratory Rate 14 05/07/25 17:01 Blood Pressure 115/73 05/07/25 19:00 Pulse Oximetry 100 05/07/25 19:01 Oxygen Delivery Room Air 05/07/25 11:02 MDM - Abdominal Pain MDM Narrative Medical decision making narrative: 44 year old female with prior uterine ablation presents with LLQ abdominal pain that recurs monthly but is much worse over the past 2 days associated with change in bowel habits. Vital signs stable. Patient given IV fluids and Zofran. CBC and chemistry panel unremarkable. UA with some mild hematuria but no signs of infection. CT scan obtained with discovery of 7 mm fibroid and irregular contour of endometrial complex. Incidental finding of 10 cm right adrenal mass which requires follow up noted. Discussed PCP follow up for adrenal mass with additional imaging recommended. Ordered pelvic ultrasound in ER which returned with findings consistent with adenomysosis and thin endometrial complex with trace amounts of fluid, likely irregular due to prior ablation. Patient agreeable with contacting [facility] office on Saturday for follow up arrangements. She received IV ketorolac prior to discharge and a prescription for [place] and Zofran sent to pharmacy. A written prescription for [place] had to be sent due to temporary (IT related) inability to electronically transmit or have access to prescription paper for printing (also IT related with no on site IT present at this time.) Differential Diagnosis Differential diagnosis: Likely abdominal pain, diverticulitis, gastroenteritis and other (ovarian cyst, hernia) Lab Data 05/07/25 15:19 05/07/25 15:19 Labs: Lab Results 05/07/25 Range/Units 15:19 WBC 5.9 (4.5-10.0) K/mm3 RBC 4.44 (4.2-5.4) M/mm3 Hgb 12.9 (12.0-15.0) g/dL Hct 41.0 (37.0-47.0) % MCV 92.3 (80-100) fl MCH 29.1 (26-34) pg MCHC 31.5 L (32-36) g/dl RDW 13.6 (11.5-14.5) % Plt Count 383 H (150-375) k/mm3 MPV 8.3 (7.4-10.4) fl Immature Gran % (Auto) 0.3 (0-0.5) % Neut % (Auto) 64.4 (45.5-73.1) % Lymph % (Auto) 26.4 (18.3-44.2) % [place] % (Auto) 7.7 (2.6-8.5) % Eos % (Auto) 1.0 (0-4.4) % Baso % (Auto) 0.2 (0.2-1.2) % Lymph # (Auto) 1.57 (0.9-3.2) K/mm3 [place] # (Auto) 0.5 (0.1-0.6) K/mm3 Eos # (Auto) 0.1 (0-0.3) K/mm3 Baso # (Auto) 0.0 (0.0-0.1) K/mm3 Abs Immat Gran (auto) 0.02 (0.00-0.031) K/mm3 Absolute Neuts (auto) 3.8 (1.3-6.7) K/mm3 Absolute Nucleated RBC 0.000 (0.0-0.012) K/mm3 Nucleated RBC % 0.0 (0.0-0.2) % Sodium 139 (137-145) mmol/L Potassium 3.4 (3.4-5.0) mmol/L Chloride 107 (98-107) mmol/L Carbon Dioxide 26 (22-30) mmol/L Anion Gap 6 (4-12) mmol/L BUN 9 (7-17) mg/dL Creatinine 0.54 L (0.7-1.0) mg/dL Estim Creat Clear Calc 110 ml/min Estimated GFR > 60 (59 - ) Glucose 85 (65-110) mg/dL Calcium 8.6 (8.4-10.2) mg/dL Total Bilirubin 0.5 (0.2-1.3) mg/dL AST 31 (14-36) U/L ALT 18 (6-35) U/L Alkaline Phosphatase 57 (38-126) U/L Total Protein 7.1 (6.3-8.2) g/dL Albumin 4.0 (3.5-5.1) g/dL Lipase 56 (23-300) U/L Urine Color Yellow (Yellow) Urine Appearance Clear (Clear) Urine pH 6.0 (5.0-9.0) Ur Specific [place] 1.016 (1.001-1.035) Urine Protein Negative (Negative) mg/dL Urine Glucose (UA) Negative (Negative) mg/dL Urine Ketones Trace H (Negative) mg/dL Ur Blood (Man) 2+ H (Negative) Urine Nitrate Negative (Negative) Urine Bilirubin Negative (Negative) Urine Urobilinogen 0.2 (<2.0) mg/dL Add Ur Microanalysis Reviewed Leukocyte Esterase Rfl Negative (Negative) OPHELIA/UL Urine RBC 21-50 H (0-2) /hpf Urine WBC 0-5 (0-3) /hpf Ur Squamous Epith Cells None seen (Few) /hpf Urine Bacteria None seen /hpf Urine Casts 0-2 C. trachomatis (PCR) Not detected (NOT DETECTE) N. gonorrhoeae (PCR) Not detected (NOT DETECTE) Imaging Data Radiologist's impression: ITS Impressions Abdomen/Pelvis CT 05/07/25 16:16 IMPRESSION: 1. 10.0 cm heterogeneously enhancing right adrenal mass which raises concern for adrenal carcinoma. Would recommend further evaluation with pre and postcontrast adrenal protocol MRI or CT and hormonal workup including for metanephrines. If still indeterminate would proceed with CT-guided core needle biopsy. 2. 7 mm subserosal fibroid at the uterus but with more concerning irregular contour to the endometrial complex. Consider further evaluation with pelvic ultrasound and/or hysteroscopy. 3. Small fat-containing umbilical hernia. Transvaginal US 05/07/25 18:25 IMPRESSION: 1. Myometrium demonstrates heterogeneous coarsened echotexture with striated pattern of shadowing which could be seen in the setting of adenomyosis. 2. Poorly defined but thin endometrial complex with trace amount of fluid. The irregular contour seen on prior CT could be related to reported prior endometrial ablation. Discharge Plan Discharge Clinical Impression: Pelvic pain, Abdominal pain, acute, left lower quadrant Patient Disposition: Home Condition: Stable Instructions: Antibiotic Form Additional Instructions: Call [facility] office on Saturday to arrange follow up appointment regarding abnormal findings on CT imaging. Ultrasound read is still pending at time of discharge. Patient Language: Setswana Prescriptions: New ondansetron 4 mg tablet,disintegrating 4 mg PO Q6H PRN (Reason: nausea and vomiting) Qty: 12 0RF hydrocodone-acetaminophen 5-325 mg tablet 1 tablet PO Q6H PRN (Reason: pain) Qty: 12 0RF No Action valacyclovir [Valtrex] 1 gram Tablet 1,000 mg PO PRN PRN (Reason: Outbreak) aiuxtixbukjy-Mp-xysu-minerals 27-0.4 mg Tablet 1 tablet PO DAILY cholecalciferol (vitamin D3) [Vitamin D3] 125 mcg (5,000 unit) Tablet 125 mcg PO DAILY Follow-up/Referrals: Jordana Lo, [Primary Care Provider, Family Practice] Stand Alone Forms: Work/School Release IP Time of Disposition: 18:52
--- OUTSIDE RECORDS SUMMARY | 2025-05-07 15:02 | XMS_ITS ---
Author Organization [facility] Address [address] [place] [address] Care Team Providers Care Brim Stiffener Name Role Phone Provider, None Primary Care Provider [facility] Status:Enrolled (Active) Start date:12/17/2024 Enrollment date:12/17/2024 Related social drivers of health:Intimate Partner Violence, Social Connections, Alcohol Use, Tobacco Use, Financial Resource Strain,Depression, Stress, Physical Activity, Food Insecurity, Transportation Needs, Housing Stability, Utilities Continued Care and Services Coordination
--- OUTSIDE RECORDS SUMMARY | 2025-05-07 15:02 | XMS_ITS | Clinical Summary ---
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 BREAST TISSUE:There are scattered areas of fibroglandular [...] signed by: Asuncion Fuentes M.D. ab/:09/17/2024 09:20:24 Coagulating Bath Operator(s): RT Hasmukh(R)(M), [facility]; Olivia Urias, [facility] letter sent: Birad 3 Followup Reading location: [facility] STUDY BIRADS: Category 3: Probably Benign [...] Comparison is made to exams dated: 04/03/2022 [facility], 09/16/2023, and 03/20/2024 [facility]. BREAST TISSUE:There are scattered areas of [...] signed by: Asuncion Fuentes M.D. ab/:09/17/2024 09:20:24 Coagulating Bath Operator(s): Kathy Rahman RT[facility]R)(M), [facility]; [facility], [facility] letter sent: Magaly 3 Followup Reading location: [facility] OVERALL STUDY BIRADS: Category 3: Probably Benign us Zander [facility] IM MAMMO ORDERABLES Final Resul t from Last 3 Months or Most Recently Relevant to Health Maintenance Insurance MEDICAID [employer] Care Teams Pastoral Counselor Relationship Specialty Start Date End Date Provider, None [place] PCP - General 09/16/23
--- OUTSIDE RECORDS SUMMARY | 2025-05-07 15:02 | XMS_ITS | Clinical Summary ---
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
--- OUTSIDE RECORDS SUMMARY | 2025-05-07 15:02 | XMS_ITS | Clinical Summary ---
Author Organization [facility] Address [address] [place] [id number] Care Team Providers Care Drywall Finisher Foreman Name Role Phone Mecca Jackson Primary Care [...] age to complete this topic Care Teams Drywall Finisher Foreman Relationship Specialty Start Date End Date Mecca Jackson [place] [id number] [place] [address] PCP - General 02/29/16
[2025-05-07] MEDS: ONDANSETRON INJ 4 MG/2 ML VIAL IV PUSH (15:22)
[2025-05-07] MEDS: SODIUM CHLORIDE 0.9% IV 1,000 ML 999 ML IV CONT (15:23)
[2025-05-07 15:31] LABS: Hematocrit 41.0 % (37.0-47.0); Hemoglobin 12.9 g/dL (12.0-15.0); Immature Granulocyte Percent A 0.3 % (0-0.5); Lymphocytes Absolute Auto 1.57 K/mm3 (0.9-3.2); Mean Corpuscular HGB Conc 31.5 g/dl (32-36); Mean Corpuscular Hemoglobin 29.1 pg (26-34); Mean Corpuscular Volume 92.3 fl (80-100); Nucleated Red Blood Cells Absolute Auto 0.000 K/mm3 (0.0-0.012); Nucleated Red Blood Cells Perc 0.0 % (0.0-0.2); Platelet Count Result 383 k/mm3 (150-375); Red Blood Count 4.44 M/mm3 (4.2-5.4); White Blood Count 5.9 K/mm3 (4.5-10.0)
[2025-05-07 15:46] LABS: Alanine Aminotransferase 18 U/L (6-35); Albumin Level 4.0 g/dL (3.5-5.1); Alkaline Phosphatase 57 U/L (38-126); Anion Gap 6 mmol/L (4-12); Aspartate Amino Transferase 31 U/L (14-36); Bilirubin,Total 0.5 mg/dL (0.2-1.3); Blood Urea Nitrogen 9 mg/dL (7-17); Calcium 8.6 mg/dL (8.4-10.2); Carbon Dioxide 26 mmol/L (22-30); Chloride 107 mmol/L (98-107); Estimated CRCL calculation 110 ml/min; Estimated Glomerular Filt Rate > 60; Glucose 85 mg/dL (65-110); Lipase 56 U/L (23-300); Potassium 3.4 mmol/L (3.4-5.0); Sodium 139 mmol/L (137-145); Total Protein 7.1 g/dL (6.3-8.2)
[2025-05-07 15:50] LABS: Add Urine Microscopic? YES; Appearance Urine Clear (Clear); Glucose Urine UA Negative (Negative); Leukocyte Esterase Ur Negative LEU/UL (Negative); Need Manual Microscopic Reviewed; Nitrate Urine Negative (Negative); Non Pathogenic Casts 0-2; Specific Grav Ur 1.016 (1.001-1.035)
[2025-05-07] MEDS: KETOROLAC 15 MG/ML VIAL (*BKC) IV PUSH (19:04)
== END 2025-05-07 19:20 | disposition home or self-care (01) ==
PROVIDERS: Emergency Provider Nurse Practitioner; PCP Family Medicine
DX: R10.32 Left lower quadrant pain (principal); R10.22 Pelvic and perineal pain left side; Z87.442 Personal history of urinary calculi; Z90.49 Acquired absence of other specified parts of digestive tract; Z77.22 Contact with and (suspected) exposure to environmental tobacco smoke (acute) (chronic); E27.9 Disorder of adrenal gland, unspecified; R93.89 Abnormal findings on diagnostic imaging of other specified body structures
CPT/HCPCS: 36415; 74177; 76830; 80053; 81001; 83690; 85025; 87491; 87591; 96361; 96374; 96375; 99284; J1885; J2405; J7030; Q9967

== ENCOUNTER 2025-06-17 07:56 | Outpatient (CLI) | payer OTHER, SELFPAY ==
--- NOTE | ~2025-06-17 | MR_ITS ---
EXAM/PROCEDURE: MR abdomen wo/w con HISTORY: E27.8 - Other specified disorders of adrenal gland COMPARISON: CT exam from May 062024 TECHNIQUE: Pre and postcontrast multiplanar MRI of the abdomen performed FINDINGS: 10.9 x 9.1 x 8.9 cm heterogeneously enhancing mass in the right adrenal gland/suprarenal region not significantly changed from the May 07 exam given variation in modality. Some focal areas within the central portion of the mass demonstrate no enhancement. 2 subcentimeter cysts are present in the right kidney which is displaced slightly in the caudal direction is association with the mass effect. Tiny cysts in the left kidney as well. The left adrenal gland appears normal. Patient status post cholecystectomy. The liver pancreas spleen and stomach appear normal. Aorta normal size. Unremarkable bowel gas pattern. Visualized portions of the lower chest, bones and extraperitoneal soft tissues within the field of view unremarkable. IMPRESSION: 10.9 cm right adrenal mass suspicious for adrenal carcinoma with some centralized areas of necrosis possibly present. Correlation with tissue sampling and/or surgical consultation recommended. Reviewed, dictated and finalized at location A. WARE DEVELOPER IMPRESSION: 10.9 cm right adrenal mass suspicious for adrenal carcinoma with some centraliz ed areas of necrosis possibly present. Correlation with tissue sampling and/or surgical consultation recommended.
== END 2025-06-17 07:57 | disposition home or self-care (01) ==
PROVIDERS: PCP Family Medicine; Visit Provider Family Medicine
DX: E27.8 Other specified disorders of adrenal gland (principal)
CPT/HCPCS: 74183; A9577